=== PATIENT | male | born 1940 | race Caucasian/White ===

== ENCOUNTER 2016-12-01 16:41 | Inpatient (IN) ==
--- NOTE | 2016-12-01 16:46 | Emergency Department Note ---
Disposition Clinical Impression: Small bowel obstruction, Lactic acidosis Disposition: Admitted As Inpatient Condition: Good [facility]: [facility]Primary Care Provider[facility] - Forms: Work/School Release, ED Satisfaction Letter General Adult HPI - General Chief complaint: ED Abdominal Pain Stated complaint: Abdominal Pain - Related Data Allergies Allergy/AdvReac Type Severity Reaction Status Date / Time gabapentin Allergy Rash Verified 12/01/16 16:59 Course Vital Signs Temperature 98.1 F 12/01/16 16:49 Pulse Rate 58 12/01/16 16:49 Respiratory Rate 16 12/01/16 16:49 Blood Pressure 118/66 12/01/16 16:49 O2 Sat by Pulse Oximetry 96 12/01/16 16:49 Temperature 98.1 F 12/01/16 16:49 Pulse Rate 60 12/01/16 18:09 Respiratory Rate 16 12/01/16 18:09 Blood Pressure 106/60 12/01/16 18:09 O2 Sat by Pulse Oximetry 94 12/01/16 18:09 Oxygen Delivery Oxygen Delivery Room Air Medical Decision Making - Lab Data Lab Results 12/01/16 Range/Units 18:04 PT 12.7 H (9.4-12.1) Seconds INR 1.2 Attestation Statement - Attestation Attestation: I examined this patient and my medical decision-making was reviewed with the SDE/PA/Advanced Practice Nurse/Resident Physician. I agree with the documented findings, disposition and treatment plan as described except to the extent set forth below. [id number] time provided Patient transferred from the [facility] due to concerns for small bowel obstruction. Patient states his pain had resolved but is starting to return. He appears in no acute distress on exam. Family at bedside 17:27: CT report from the [facility] reviewed with the resident physician. Call placed to Dr. Cho, surgery on-call to discuss findings
[2016-12-01] MEDS ORDERED: *HR* HYDROmorphone (PF) 1 MG/ML SYRINGE IVP ONE (17:42)
--- NOTE | 2016-12-01 17:42 | Emergency Department Note ---
Disposition Clinical Impression: Small bowel obstruction, Lactic acidosis Disposition: Admitted As Inpatient Condition: Good [facility]errals: [facility] [Primary Care Provider[facility] - Forms: ED Satisfaction Letter, Work/School Release Abdominal Pain HPI - General Chief Complaint: ED Abdominal Pain Stated Complaint: Abdominal Pain Time Seen by Provider: 12/01/16 16:53 Source: patient, EMS Nursing Notes Reviewed: Yes Vital Signs Reviewed: Yes - History of Present Illness HPI Narrative: Yoandy is a 76-year-old gentleman with a history of [id number]-medpqroct diabetes, hypertension, gout who presents to the emergency Department with a chief complaint of abdominal pain and distention. This has been progressive over the last 3 days. 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 he has also had polyps removed from the bowel is well in the past. His last bowel movement was 2 days ago and denies any blood in the stool. He was having some gas yesterday but that seemed to stop. He was seen at the [facility] earlier today with a performed lab work and a CT scan which showed evidence of a high-grade small bowel obstruction. At this time patient's pain is mild and on the left side. He has had no associated nausea or vomiting. No fevers or chills. Pain Scale: 3 - Related Data Allergies Allergy/AdvReac Type Severity Reaction Status Date / Time gabapentin Allergy Rash Verified 12/01/16 16:59 All systems ED: reviewed and negative except as stated. Constitutional: Denies: fever Cardiovascular: Denies: chest pain Respiratory: Denies: cough Gastrointestinal: Reports: abdominal pain (Left-sided). Denies: nausea, vomiting Musculoskeletal: Denies: back pain Neurological: Denies: headache, weakness, numbness Abdominal Pain PMH - Past Medical History Medical history: Reports: diabetes, GERD, hyperlipidemia, hypertension, thyroid disease Male Surgical History: Reports: appendectomy, cholecystectomy Psychiatric history: Reports: anxiety, depression, panic disorder, PTSD, other - Social History Smoking status: Never smoker Alcohol use: Reports: none Drug use: Reports: none Physical Exam General: Appears well, alert and oriented x 3 Cardiovascular: Regular rate and rhythm. S1, S2. No murmurs, rubs or gallops. Respiratory: Breath sounds clear bilaterally. No wheezing, rales or rhonchi. No resp distress Abdomen: Abdomen is slightly distended but soft without any guarding or rigidity. He has some left-sided tenderness. Hyperactive bowel sounds. Mild diffuse discomfort with the majority being on the left side. No palpable organomegaly. No overlying bruising or signs of trauma Eyes: Conjunctiva clear without scleral icterus HENT: No oral mucosal lesions. Moist mucous membranes Neuro: Alert and oriented 3, no motor or sensory deficits Musculoskeletal: No joint tenderness No edema, swelling or signs of DVT Skin: No lesions. No diaphoresis. Normal turgor. Normal color Psych: Appropriate - General Limitations: no limitations General appearance: alert Course Course Narrative: [facility]ocytosis at 12.9. Hemoglobin is 14.7. Platelets are 266. AST and ALTs are within normal limits. Total bilirubin is 1.9. Glucose is 113. Creatinine is 1.25. BUN is 9. GFR is 59. Lactic acid is 3.9 urinalysis shows trace glucose but otherwise unremarkable. CT scan shows a hyperattenuating 3 cm intraluminal lesion in the mid to distal ileum, findings concerning for high-grade small bowel obstruction in the left abdomen. There is also some mesenteric edema, new nodes, fluid and thickened jejunal loops concerning for closed loop obstruction, ischemic, inflammatory or neoplastic process. Clinically patient is comfortable, tender but nonsurgical abdomen. Vital stable. He is afebrile. I discussed with the on-call surgeon and he would like an NG placed, hold antibiotics at this time and provide IV fluids which will likely correct the lactic acidosis. I discussed the NG tube with the patient and he reports he would never have another one of these placed because of previous experience. I told him this is incredibly important and can help prevent surgery but he still does not want. He reports the only way he would have this place if he was completely asleep. Vital Signs Temperature 98.1 F 12/01/16 16:49 Pulse Rate 58 12/01/16 16:49 Respiratory Rate 16 12/01/16 16:49 Blood Pressure 118/66 12/01/16 16:49 O2 Sat by Pulse Oximetry 96 12/01/16 16:49 Temperature 98.1 F 12/01/16 16:49 Pulse Rate 60 12/01/16 17:13 Respiratory Rate 16 12/01/16 17:13 Blood Pressure 123/75 12/01/16 17:13 O2 Sat by Pulse Oximetry 95 12/01/16 17:13 Oxygen Delivery Oxygen Delivery Room Air
[2016-12-01] MEDS ORDERED: 0.9 % Sodium Chloride 1,000 ML IVC ONE (17:49)
[2016-12-01 18:15] LABS: INR 1.2; Prothrombin Time 12.7 Seconds (9.4-12.1)
[2016-12-01] MEDS ORDERED: Menthol 9.1 MG LOZENGE PO STA (18:33)
[2016-12-01] MEDS ORDERED: Ketamine *HR* 500 MG/10 ML MDV IV ONE (19:40)
[2016-12-01] MEDS ORDERED: Lidocaine Viscous Oral Soln 15 ML SOLUTION MM STA (19:44)
--- NOTE | 2016-12-01 20:07 | Emergency Department Note ---
Disposition Clinical Impression: Small bowel obstruction, Lactic acidosis Disposition: Admitted As Inpatient Condition: Good General Adult HPI - General Chief complaint: ED Abdominal Pain Stated complaint: Abdominal Pain Time Seen by Provider: 12/01/16 16:53 Source: patient, EMS Limitations: no limitations - History of Present Illness Pain Scale: 0 - Related Data Allergies Allergy/AdvReac Type Severity Reaction Status Date / Time gabapentin Allergy Rash Verified 12/01/16 16:59 Constitutional: Denies: fever Cardiovascular: Denies: chest pain Respiratory: Denies: cough Gastrointestinal: Reports: abdominal pain (Left-sided). Denies: nausea, vomiting Musculoskeletal: Denies: back pain Neurological: Denies: headache, weakness, numbness Past Medical History - Past Medical History Medical history: Reports: diabetes, GERD, hyperlipidemia, hypertension, thyroid disease Psychiatric history: Reports: anxiety, depression, panic disorder, PTSD, other - Social History Smoking Status: Never smoker Smokeless Tobacco Status: No Alcohol use: Reports: none Drug use: Reports: none Physical Exam - General Limitations: no limitations General appearance: alert Course - Reevaluation(s) Reevaluation #1: Procedure patient from Dr. Jones in signout. Patient is a 76-year-old gentleman that presented with a small bowel disruption from the [facility]. He had elevated lactic acid 4 along with a tympanitic distended abdomen. He had initially reviewed diffuse NG tube placement, but did agree to have an NG tube placed with procedural sedation. We performed the procedural sedation and place the tube without complication. Time: 20:06 Reevaluation #2: KUB in good position on XR. Accepted by Dr. Cheek. NG tube drained 500 mL of bilious fluid so far. Time: 20:49 Vital Signs Temperature 98.1 F 12/01/16 16:49 Pulse Rate 58 12/01/16 16:49 Respiratory Rate 16 12/01/16 16:49 Blood Pressure 118/66 12/01/16 16:49 O2 Sat by Pulse Oximetry 96 12/01/16 16:49 Temperature 99.5 F 12/02/16 00:16 Pulse Rate 85 12/02/16 00:16 Respiratory Rate 20 12/02/16 00:16 Blood Pressure 103/42 12/02/16 00:16 O2 Sat by Pulse Oximetry 93 12/02/16 00:16 Oxygen Delivery Oxygen Delivery [2042] Room Air Oxygen Delivery [2037] Room Air Oxygen Delivery [2032] Room Air Oxygen Delivery [2027] Nasal Cannula Oxygen Delivery [2022] Nasal Cannula Oxygen Delivery [2017] Nasal Cannula Oxygen Delivery [2012] Nasal Cannula Oxygen Delivery [2007] Nasal Cannula Oxygen Delivery [2002] Nasal Cannula Oxygen Delivery [1957] Nasal Cannula Oxygen Delivery [1952] Nasal Cannula Oxygen Delivery Room Air Procedures - Procedural Sedation Indication: other (NG tube placement) Dietary Status: NPO 6 hours prior to procedure H&P (including ROS) documented in medical record: Yes Previous reaction to sedatives/anesthetics: No Dentition: No loose teeth or bridges Airway Assessment: Patient can open mouth completely, TMJ function normal, Micrognathia (under-bite, receding chin) absent, Neck with adequate range of motion Possible difficult airway: No ASA Classification: CLASS II-Mild systemic disease Plan of Care: Pt appropriate candidate for procedure/moderate/conscious sedation , Risks/benefits of procedure/sedation discussed w/ patient/family, If not NPO; Risk of intake outweiged by necessity to perform procedure Preparation: front desk monitor applied, pulse oximeter, capnometry used, supplemental O2 applied, suction/airway equipment at bedside, IV secured Ketamine: IV Ketamine Dose: 100 Patient Tolerated Procedure: well, no complications Medical Decision Making - Lab Data Result diagrams: 12/02/16 03:52 12/02/16 03:52 Lab Results 12/01/16 12/01/16 12/01/16 Range/Units 18:04 20:19 22:56 PT 12.7 H (9.4-12.1) Seconds INR 1.2 POC Glucose 179 H (58-89) Lactic Acid 2.6 H (0.5-2.2) mmol/L Attestation Statement - Attestation Attestation: I, Jag Nesbitt, examined this patient and my medical decision-making was reviewed with the BREAKING MACHINE OPERATOR/PA/Advanced Practice Nurse/Resident Physician. I agree with the documented findings, disposition and treatment plan as described except to the extent set forth below. 76-year-old male received in sign out at 7 PM upon the start of my shift pending hospital. Patient is being admitted for a small bowel instruction. We discussed possible nasogastric tube placement with him he agreed under conditions of procedural sedation. The risks and benefits were discussed thoroughly with the patient and he agreed to a procedural sedation for NG tube placement. Patient was given ketamine, NG tube was placed without difficulty, chest x-ray confirmed placement of the NG tube as it cut to the maynor and the diaphragm. Patient had return of gastric contents and felt improved during observation in the emergency department. He was admitted to the hospital for further care and evaluation of a small bowel obstruction to the hospitalist with surgical consult to Dr. Cho.
[2016-12-01] MEDS ORDERED: *HR* LORazepam 2 MG/ML VIAL IVP ONE ×2 (21:11→21:31)
[2016-12-01] MEDS ORDERED: *HR* OxyCODONE Immed Rel 5 MG TABLET PO PRN (23:40)
[2016-12-01] MEDS ORDERED: Acetaminophen 325 MG TABLET PO PRN (23:40)
[2016-12-01] MEDS ORDERED: Naloxone 0.4 MG/ML INJ IVP PRN (23:40)
--- NOTE | 2016-12-01 23:44 | Internal Med History&Physical ---
Date of Encounter: 12/01/16 Time of Encounter: 23:20 Assessment and Plan (1) Small bowel obstruction Current visit: Yes Status: Acute Likely due to adhesions from multiple previous abdominal surgeries including partial small bowel resection. CT abdomen/pelvis done at the [facility] emergency room shows changes suggestive of high-grade small bowel obstruction. Surgery has been consulted by ER physician, recommended medical management, full consult to follow. Continue nasogastric tube to intermittent low wall suction. Keep nothing by mouth for now with IV hydration. Pain control with when necessary IV morphine. Monitor and replace electrolytes. Patient may require surgery for small bowel obstruction. (2) Lactic acidosis Current visit: Yes Status: Acute Likely due to ischemic small bowel. Lactic acid noted to be 3.9 at the [facility], currently 2.6. Continue IV hydration and monitor lactic acid. (3) Diabetes mellitus Current visit: Yes Status: Chronic Accu-Chek blood glucose monitoring with sliding scale insulin as needed. Check hemoglobin A1c. Nothing by mouth for now. Qualifiers: Diabetes mellitus type: type 2 Diabetes mellitus complication status: with unspecified complications Diabetes mellitus oil heaterman insulin use: without alf use Qualified Code(s): E11.8 - Type 2 diabetes mellitus with unspecified complications (4) Hypothyroidism Current visit: Yes Status: Chronic Resume levothyroxine. Will give IV Synthroid for now due to patient being nothing by mouth. Qualifiers: Hypothyroidism type: unspecified Qualified Code(s): E03.9 - Hypothyroidism , unspecified (5) PTSD (post-traumatic stress disorder) Current visit: Yes Status: Chronic Internal Medicine - H&P: HPI Chief complaint: Abdominal pain, distension Admitted From: Emergency Dept Plans for Post Hospital Care: [facility] History of present illness: Mr. 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 Patient was initially evaluated at the [facility] emergency room and sent to our hospital for higher level of care. Patient reports at least a four-week history of nonspecific lower abdominal pain for which he was evaluated at different emergency rooms at least twice and underwent basic labs, CT abdomen, PET/CT with no specific diagnosis. His abdominal pain has been getting worse for the last 2-3 days, associated with abdominal distention and nausea. Pain is worse in left lower abdomen, moderate to severe dull aching pain, nonradiating, no aggravating or relieving factors. He reports no vomiting and his last bowel movement has been yesterday morning after which he took laxatives with no flatness or bowel movement. He reports subjective chills but no chest pain, cough, shortness of breath. He lives alone and reports recent unsteady gait, he also sustained a fall about 5 weeks ago and has recently been approved for home health services, not begun yet. Past Med Surg Social Fam HX - Past Medical History Medical history: diabetes, GERD, hyperlipidemia, hypertension, thyroid disease Psychiatric history: anxiety, depression, panic disorder, PTSD - Past Surgical History Surgical History: appendectomy, cholecystectomy, other (Small bowel resection and excision of possible mass/tumor) - Social History Smoking Status: Never smoker Smokeless Tobacco Status: No Alcohol use: none Drug use: none Occupational status: retired Current living situation: Home - Independent Activity Level: Independent ambulation Recent Out of Country Travel Within the Last 8 Weeks: No - Family History Mother Hx Family Cardiac Disorders: Yes Father Hx Family Neurologic Disorders: Yes Internal Medicine - H&P: Meds Cyanocobalamin (B-12) [Vitamin B12] 1,000 mcg PO BID 12/01/16 [History] LORazepam [Ativan] 0.5 mg PO TID PRN 12/01/16 [History] Levothyroxine [Levothyroxine Sodium] 137 mcg PO DAILY 12/01/16 [History] Lidocaine Patch [Lidoderm 5% patch] 1 each TP DAILY 12/01/16 [History] Polyethylene Glycol 17 g PO DAILY PRN 12/01/16 [History] Simvastatin [Zocor] 20 mg PO BID 12/01/16 [History] metFORMIN [Glucophage] 1,000 mg PO BID 12/01/16 [History] Allergies gabapentin Allergy (Verified 12/01/16 16:59) Rash All Systems PM: A 10-system review of systems was performed and is negative for pertinent findings except as documented above in the HPI. - Constitutional Constitutional: chills, falls - EENT Eyes: no change in vision, no discharge, no pain, no photophobia Ears: no ear discharge, no ear pain, no tinnitus Nose, mouth and throat: no dysphagia, no nasal discharge, no neck pain, no sore throat - Cardiovascular Cardiovascular ROS IM: no chest pain, no diaphoresis, no dyspnea, no lightheadedness, no palpitations, no syncope - Respiratory Respiratory: no cough, no dyspnea, no wheezing, no excessive phlegm production - Gastrointestinal Gastrointestinal: abdominal pain, bloating, change in bowel habits, nausea - Musculoskeletal Musculoskeletal ROS IM: no numbness, no tingling - Integumentary Integumentary IM: no rash, no unusual bruising - Neurological Neurological ROS: no confusion, no convulsions, no focal weakness, no numbness, no tingling, no tremor(s) - Hematologic/Lymphatic Hematologic/Lymphatic: no easy bruising - Constitutional Vitals: Temp Pulse Resp BP Pulse Ox 100.2 F H 102 20 160/70 94 12/01/16 22:05 12/01/16 22:05 12/01/16 22:05 12/01/16 22:05 12/01/16 22:05 General appearance: Present: A&O X 3, answers questions appropriately - ENT Additional comments: Bilateral hearing loss. NG tube connected to intermittent low wall suction, continues to have high dark greenish black output - Respiratory Respiratory exam: Present: CTAB. Absent: accessory muscle use, rales, rhonchi, wheezes - Cardiovascular Cardiovascular exam: Present: RRR, +S1, +S2. Absent: diastolic murmur, gallop, rubs, systolic murmur - GI/Abdominal GI/Abdominal exam: Present: distended, hyperactive bowel sounds, soft ( Tenderness in lower abdomen and left lower quadrant. No guarding or rigidity), no peritoneal signs. Absent: tenderness - Extremities Exam Extremities exam: Present: full ROM, warm, radial pulses palpable and symetrical. Absent: calf tenderness, cyanotic, pedal edema - Neurological Exam Neurological exam: Present: CN II-XII intact, oriented X3, no focal deficits. Absent: pronater drift, facial droop, speech deficit - Skin Skin exam: Present: dry, intact Internal Med - H&P Results - EKG Data -: EKG Interpreted by Myself EKG shows normal: sinus rhythm Rate: normal
[2016-12-02] MEDS ORDERED: Chloraseptic Spray 177 ML BOTTLE MM PRN (00:08)
[2016-12-02] MEDS: 0.9 % Sodium Chloride 1,000 ML IVC SCH ×2 (00:26→14:36)
[2016-12-02] MEDS: *HR* Morphine 2 MG/ML SYRINGE IVP PRN ×2 (00:27→05:25)
[2016-12-02] MEDS ORDERED: *HR* Dextrose 50 % in Water (Syg) 50 ML SYRINGE IVP PRN (03:31)
[2016-12-02] MEDS ORDERED: D5% in Water 1,000 ML IVC PRN (03:31)
[2016-12-02] MEDS ORDERED: Dextrose Gel 15 GM PO PRN ×2 (03:31)
[2016-12-02 04:07] LABS: Hemoglobin A1C 6.9 %
[2016-12-02 04:15] LABS: BUN/Creatinine Ratio 16 (6-26); Blood Urea Nitrogen 20 mg/dL (8-26); Calcium 8.5 mg/dL (8.6-10.8); Carbon Dioxide 24 mEq/L (19-29); Chloride 105 mEq/L (98-109); Glucose 220 mg/dL (70-99); Magnesium 1.9 mg/dL (1.6-2.6); Osmolality,Calculated 299 (280-300); Phosphorous 3.5 mg/dL (2.3-4.7); Sodium 140 mEq/L (136-145); eGFR For African Americans > 60 (> 60); eGFR For Non-African Americans 55 (> 60)
[2016-12-02 04:20] LABS: Potassium 3.9 mEq/L (3.5-4.5)
[2016-12-02 05:03] LABS: Basophils % 0.1 %; Hematocrit 35.9 % (37.5-50.1); Hemoglobin 12.6 g/dL (12.9-16.9); Lymphocytes # 0.5 K/mcL (0.6-4.6); Lymphocytes % 3.4 %; Mean Corpuscular HGB Conc 35.1 g/dL (31.6-35.5); Mean Corpuscular Hemoglobin 30.4 pg (28.0-33.3); Mean Corpuscular Volume 86.7 fL (83.0-100.0); Mean Platelet Volume 11.6 fL (9.4-12.4); Monocytes # 1.2 K/mcL (0.0-1.3); Neutrophils # 12.9 K/mcL (1.6-8.9); Platelet Count 178 K/mcL (140-400); Red Blood Count 4.14 M/mcL (4.19-5.50); Segmented Neutrophils % 87.5 %
[2016-12-02] MEDS: *HR* Heparin 5,000 UNIT/ML VIAL SQ SCH ×2 (05:24→17:47)
[2016-12-02] MEDS: Pantoprazole 40 MG VIAL IVP SCH (05:24)
[2016-12-02] MEDS: Levothyroxine Sodium 100 MCG VIAL IVP SCH (05:24)
[2016-12-02] MEDS: Insulin LISPRO 300 UNITS/3 ML VIAL SQ SCH ×3 (05:25→18:56)
[2016-12-02] MEDS ORDERED: *HR* HYDROmorphone (PF) 1 MG/ML SYRINGE IVP ONE (06:50)
--- NOTE | 2016-12-02 10:09 | General Surgery Consult Note ---
<Joann Dent - Last Filed: 12/02/16 16:59> Date of Encounter: 12/02/16 Time of Encounter: 09:30 Assessment and Plan (1) Small bowel obstruction Current Visit: Yes Status: Acute High grade small bowel obstruction. 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 Patient reports progressively worsening abdominal pain described as constant aching sensation with intermittent episodes of severe cramping pain at 7-10 out of 10 located in his left upper quadrant and radiating down his left lower quadrant to his pelvis. Associated symptoms include bloating and distention, nausea, and blood in his stool over the past month. Patient reports last bowel movement was 3 days ago he has not had flatus, or had any appetite for 3 days. Patient reports last meal was 3 days ago. [facility], CT abdomen dated 12/01/16: CT of the abdomen and pelvis without contrast was compared to CT scan dated 11/06/16. Impression: 1. Findings concerning for high-grade small bowel obstruction epicenter of which is in the left abdomen, and probably centering on the jejunal loops focal infiltrative neoplasm, enteritis closed-loop obstruction are considerations. Left mid to upper mesenteric edema, new nodes, fluid, and distortion of thickened probable jejunal loops; concerning for possible closed loop obstruction ischemic, inflammatory or neoplastic process would be difficult to exclude. This cluster of dilated small bowel loops, with narrow central medial base, best seen on coronal image 28, series 203 measuring approximately 6-7 cm. 2. Small bowel loops distal to this left upper quadrant abnormality air dilated , with air fluid levels, extending to the proximal ileal, distal jejunal small bowel intraluminal hyper attenuating focus, best seen on axial image 46, series 201. Findings could be due to ingested hyper attenuating artifact, however there appeared to be a transition point, bowel neoplasm, intraluminal lesion with transitional point, should be excluded 3. The left colon appears nondilated with diverticulosis. Colitis diverticulitis is not definitely seen 4. The right abdominal colonic, small bowel anastomosis shows mild wall prominence, adjacent nodes, stranding of fat could represent localized recurrence lucency, however inflammatory or infectious process would be difficult to exclude. 5. Previously mentioned hepatic hypodensity is not suggested current study, contrast-enhanced CT, MRI or ultrasound to be useful to assess for hepatic metastases. 6. New, slightly heterogenous linear and somewhat nodular opacities at the right lung base could represent atelectasis. Pulmonary neoplasm not entirely excluded. Consider follow-up chest CT to ensure resolution particularly if concern for pulmonary malignancy. Laboratory results from [facility] demonstrated leukocytosis 12.9, eosinophils 10.8, absolute neutrophil count 9.5, total bilirubin 1.9, creatinine of 1.25, Lactic acid 3.9, labs otherwise unremarkable. Plan: Small bowel obstruction -Continue NG tube to low intermittent wall suction to decompress air/fluid in the upper GI tract. Monitor output. -Close electrolyte monitoring especially - Potassium as pt has had large volume output NG tube. -NPO except for Ice chips: 1 cup every 6 hours. -Serial abdominal exams -Close monitoring of I/O's over the next 24 hours -Continue IV fluids -Continue pain control -Continue GI prophylaxis/PPI therapy -Continued daily monitoring for flatus and bowel movements. -Conservative therapy for 48 to 72 hours for small bowel obstruction. If no resolution surgery may be indicated. Will obtain further records from 3 medical facilities patient had abdominal surgeries with "masses" removed. Nurse Thacker has requested records by calling today. Surgical reports, pathology, imaging requested. - [facility] [place]: reported surgery 11 months ago - [facility] History of Present Illness Consult date: 12/02/16 Reason for consult: abdominal pain Requesting physician: Leeroy Jones History of present illness: Mr. 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 Patient reports progressively worsening abdominal pain described as constant aching sensation with intermittent episodes of severe cramping pain at 7-10 out of 10 located in his left upper quadrant and radiating down his left lower quadrant to his pelvis. Associated symptoms include bloating and distention, nausea, and blood in his stool over the past month. Patient reports last bowel movement was 3 days ago he has not had flatus, or had any appetite for 3 days. Patient reports last meal was 3 days ago. Patient reports that he tried to take half a tablet of Vicodin to alleviate the pain however, this provided minimal relief when taken the first day no relief the second or third day of abdominal pain. Pain continued to increase despite treatment at home prompting the patient to be seen today. [facility], CT abdomen dated 12/01/16: CT of the abdomen and pelvis without contrast was compared to CT scan dated 11/06/16. Impression: 1. Findings concerning for high-grade small bowel obstruction epicenter of which is in the left abdomen, and probably centering on the jejunal loops focal infiltrative neoplasm, enteritis closed-loop obstruction are considerations. Left mid to upper mesenteric edema, new nodes, fluid, and distortion of thickened probable jejunal loops; concerning for possible closed loop obstruction ischemic, inflammatory or neoplastic process would be difficult to exclude. This cluster of dilated small bowel loops, with narrow central medial base, best seen on coronal image 28, series 203 measuring approximately 6-7 cm. 2. Small bowel loops distal to this left upper quadrant abnormality air dilated , with air fluid levels, extending to the proximal ileal, distal jejunal small bowel intraluminal hyper attenuating focus, best seen on axial image 46, series 201. Findings could be due to ingested hyper attenuating artifact, however there appeared to be a transition point, bowel neoplasm, intraluminal lesion with transitional point, should be excluded 3. The left colon appears nondilated with diverticulosis. Colitis diverticulitis is not definitely seen 4. The right abdominal colonic, small bowel anastomosis shows mild wall prominence, adjacent nodes, stranding of fat could represent localized recurrence lucency, however inflammatory or infectious process would be difficult to exclude. 5. Previously mentioned hepatic hypodensity is not suggested current study, contrast-enhanced CT, MRI or ultrasound to be useful to assess for hepatic metastases. 6. New, slightly heterogenous linear and somewhat nodular opacities at the right lung base could represent atelectasis. Pulmonary neoplasm not entirely excluded. Consider follow-up chest CT to ensure resolution particularly if concern for pulmonary malignancy. Laboratory results from [facility] demonstrated leukocytosis 12.9, eosinophils 10.8, absolute neutrophil count 9.5, total bilirubin 1.9, creatinine of 1.25, Lactic acid 3.9, labs otherwise unremarkable. Relevant history: Patient reports 4-5 weeks of intermittent colicky abdominal pain for which he was evaluated at the [facility] on 11/06/16 with small bowel obstruction. CT scan suggested possible small bowel obstruction due to mass seen on CT and liver spot. He reports that his obstruction resolved and he was sent home with outpatient PET scan. He was then seen at [facility] 11/28/16 to evaluate a spot on his liver for which he had a PET scan demonstrating no acute pathology or uptake. Whole body PET CT fusion study dated 11/28/16 was compared to previous abdominal CT of 12/31/15. Impression: 1. Previously noted ileaoileal intussusception is no longer evident and may have been surgically repaired. 2. No definite evidence of a neoplastic process involving the abdomen or pelvis. There is a rather intense uptake throughout the small bowel and colon which limits evaluation somewhat. 3. There is a nearly 2 cm somewhat poorly defined density in the right lower lobe. This demonstrates very mild tracer uptake and most likely represent some atelectasis or minimal focal pneumonia. Clinical and radiographic follow-up is suggested. 4. There is moderate tracer accumulation within bilateral hilar lymph nodes most pronounced on the right. I suspect these are postinflammatory but should be reassessed with follow-up chest CT in 6 months to assure stability. A contrast-enhanced CT would be beneficial to better evaluate hilar adenopathy. 5. Incidental findings include moderate prostatomegaly as well as bilateral fat -containing inguinal hernias. On 11/29/16 patient was seen at [facility] for persistent abdominal pain. Laboratory results demonstrated: Amylase 71 Lipase 127 AST 17 AST 11 Albumin 3.6 Alkaline phosphatase 84 Bilirubin total 0.7 Bilirubin direct 0.2 Total protein 7.1 Lactic acid 1.6 BMP: Sodium 142, potassium 3.8, chloride 107, bicarbonate 26, BUN 12 creatinine 1.10 glucose 131, calcium 8.5 BUN/creatinine ratio 10.9, anion gap 12.8 CBC with differential: Unremarkable. Patient's pain was relieved with 20 of Bentyl. No imaging studies were obtained. Patient was counseled to follow-up with Dr. Díaz. Patient was discharged in stable condition. 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 Patient reports that they went in through the same incision twice, reports that no time did he have a colostomy ; surgery reported to be performed at [facility] by Dr Acuna. Past Med Surg Social Fam HX - Past Medical History Medical history: diabetes, GERD, hyperlipidemia, hypertension, thyroid disease Psychiatric history: anxiety, depression, panic disorder, PTSD, other - Past Surgical History Surgical History: appendectomy, cholecystectomy, other (Small bowel resection and excision of possible mass/tumor) - Social History Smoking Status: Never smoker Smokeless Tobacco Status: No Alcohol use: none Drug use: none - Family History Mother Hx Family Cardiac Disorders: Yes Father Hx Family Neurologic Disorders: Yes Medications and Allergies Cyanocobalamin (B-12) [Vitamin B12] 1,000 mcg PO BID 12/01/16 [History] LORazepam [Ativan] 0.5 mg PO HS PRN 12/01/16 [History] Lidocaine Patch [Lidoderm 5% patch] 2 each TP DAILY 12/01/16 [History] Polyethylene Glycol 3350 [Smoothlax] 17 gm PO BID PRN 12/01/16 [History] RX: Levothyroxine [Levothyroxine Sodium] 137 mcg PO QAM 12/01/16 [History] Simvastatin [Zocor] 20 mg PO HS 12/01/16 [History] metFORMIN [Glucophage] 1,000 mg PO QAM 12/01/16 [History] Cyanocobalamin (B-12) [Vitamin B12] 1,000 mcg IM AD 12/02/16 [History] Diclofenac Sodium [Voltaren] 1 appl TP BID PRN 12/02/16 [History] Melatonin [Melatin] 3 mg PO HS 12/02/16 [History] Pantoprazole Sodium [Protonix] 20 mg PO BID 12/02/16 [History] Pregabalin [Lyrica] 150 mg PO BID 12/02/16 [History] Pregabalin [Lyrica] 200 mg PO HS 12/02/16 [History] RX: Gentamicin OPTH Soln 2 drop BOTH EYES QID 12/02/16 [History] Saxagliptin HCl [Onglyza] 5 mg PO DAILY 12/02/16 [History] Sennosides/Docusate Sodium [Senna Plus] 1 each PO BID 12/02/16 [History] Tobramycin/Dexamethasone [Tobramycin-Dexameth Ophth Susp] 1 drop BOTH EYES QID 12/02/16 [History] metFORMIN [Glucophage] 1,500 mg PO HS 12/02/16 [History] Allergies gabapentin Allergy (Verified 12/01/16 16:59) Rash omeprazole [From Prilosec] Adverse Reaction (Verified 12/02/16 14:05) [facility] list Review of Systems All systems PM: A 10-system review of systems was performed and is negative for pertinent findings except as documented above in the HPI. - Constitutional anorexia, no fever(s) - EENT Nose, mouth and throat: no headache(s), no mouth lesions, no neck mass - Cardiovascular dyspnea on exertion, no chest pain at rest, no diaphoresis, no palpitations - Respiratory pain on inspiration, no cough - Gastrointestinal abdominal pain, change in bowel habits, constipation, dyspepsia, heartburn, nausea, no coffee ground emesis, no hematemesis, no hematochezia, no melena, no vomiting - Genitourinary no dysuria, no flank pain - Musculoskeletal arthralgias, back pain, joint swelling (Gout flare), neck pain, tingling - Integumentary no new lesions, no pruritus, no rash, no sores, no swelling, no jaundice - Neurological numbness, paresthesias, radicular pain, no syncope, no vertigo, no weakness - Psychiatric abnormal sleep pattern, anxiety, depression - Endocrine no excessive sweating, no fatigue, no flushing, no palpitations, no polyuria - Hematologic/Lymphatic no easy bleeding, no easy bruising, no lymphadenopathy - Allergic/Immunologic GI upset with certain foods General Surgery Exam Initial Vital Signs Temp Pulse Resp BP Pulse Ox 98.1 F 58 16 118/66 96 12/01/16 16:49 12/01/16 16:49 12/01/16 16:49 12/01/16 16:49 12/01/16 16:49 - General physical appearance well developed, well nourished, moderate distress, moderate pain, obese. negative: jaundice - Eyes PERRL, normal ocular movement - ENT atraumatic, normocephalic - Neck trachea midline, no venous distension - Respiratory normal expansion, normal respiratory effort, clear to auscultation - Cardiovascular Cardiovascular exam: Present: RRR, no murmurs/rubs/gallops. Absent: JVD - Abdomen Abdomen general surgery: Present: bowel sounds present, soft, tender Abdominal Tenderness: Present: LUQ, LLQ - Integumentary Integumentary general surgery: Present: warm and dry, no abnormal pigmentation. Absent: rash - Neurologic Present: CN 2-12 grossly intact, normal coordination, normal sensation - Musculoskeletal Present: normal posture - Psychiatric Psychiatric general surgery: Present: A&Ox3, appropriate, speech is normal, memory intact Exam Initial Vital Signs Temp Pulse Resp BP Pulse Ox 98.1 F 58 16 118/66 96 12/01/16 16:49 12/01/16 16:49 12/01/16 16:49 12/01/16 16:49 12/01/16 16:49 Results - Labs 12/02/16 03:52 12/02/16 03:52 Abnormal lab results WBC 14.7 K/mcL (4.3-11.1) H 12/02/16 03:52 RBC 4.14 M/mcL (4.19-5.50) L 12/02/16 03:52 Hgb 12.6 g/dL (12.9-16.9) L 12/02/16 03:52 Hct 35.9 % (37.5-50.1) L 12/02/16 03:52 Neutrophils # 12.9 K/mcL (1.6-8.9) H 12/02/16 03:52 Lymphocytes # 0.5 K/mcL (0.6-4.6) L 12/02/16 03:52 PT 12.7 Seconds (9.4-12.1) H 12/01/16 18:04 Creatinine 1.26 mg/dL (0.72-1.25) H 12/02/16 03:52 Est GFR (Non-Af Amer) 55 (> 60) L 12/02/16 03:52 Glucose 220 mg/dL (70-99) H 12/02/16 03:52 POC Glucose 179 (58-89) H 12/01/16 22:56 Hemoglobin A1c 6.9 % (-5.6) H 12/02/16 03:52 Calcium 8.5 mg/dL (8.6-10.8) L 12/02/16 03:52 Diabetes panel 12/02/16 12/02/16 Range/Units 03:52 03:52 Sodium 140 (136-145) mEq/L Potassium 3.9 (3.5-4.5) mEq/L Chloride 105 (98-109) mEq/L Carbon Dioxide 24 (19-29) mEq/L BUN 20 (8-26) mg/dL Creatinine 1.26 H (0.72-1.25) mg/dL Glucose 220 H (70-99) mg/dL Hemoglobin A1c 6.9 H ( - 5.6) % Calcium 8.5 L (8.6-10.8) mg/dL Calcium panel 12/02/16 Range/Units 03:52 Calcium 8.5 L (8.6-10.8) mg/dL Phosphorus 3.5 (2.3-4.7) mg/dL Pituitary panel 12/02/16 Range/Units 03:52 Sodium 140 (136-145) mEq/L Potassium 3.9 (3.5-4.5) mEq/L Chloride 105 (98-109) mEq/L Carbon Dioxide 24 (19-29) mEq/L BUN 20 (8-26) mg/dL Creatinine 1.26 H (0.72-1.25) mg/dL Glucose 220 H (70-99) mg/dL Calcium 8.5 L (8.6-10.8) mg/dL Adrenal panel 12/02/16 Range/Units 03:52 Sodium 140 (136-145) mEq/L Potassium 3.9 (3.5-4.5) mEq/L Chloride 105 (98-109) mEq/L Carbon Dioxide 24 (19-29) mEq/L BUN 20 (8-26) mg/dL Creatinine 1.26 H (0.72-1.25) mg/dL Glucose 220 H (70-99) mg/dL Calcium 8.5 L (8.6-10.8) mg/dL All other labs normal. Consult Discharge Plan - Plan [facility]errals: [facility]Primary Care Provider[facility] - <Pj Cho - Last Filed: 12/03/16 05:47> Date of Encounter: 12/03/16 Review of Systems All systems PM: A 10-system review of systems was performed and is negative for pertinent findings except as documented above in the HPI. General Surgery Exam Initial Vital Signs Temp Pulse Resp BP Pulse Ox 98.1 F 58 16 118/66 96 12/01/16 16:49 12/01/16 16:49 12/01/16 16:49 12/01/16 16:49 12/01/16 16:49 Exam Initial Vital Signs Temp Pulse Resp BP Pulse Ox 98.1 F 58 16 118/66 96 12/01/16 16:49 12/01/16 16:49 12/01/16 16:49 12/01/16 16:49 12/01/16 16:49 Results - Labs 12/03/16 04:40 12/03/16 04:40 Abnormal lab results Hgb 12.8 g/dL (12.9-16.9) L 12/03/16 04:40 Hct 36.8 % (37.5-50.1) L 12/03/16 04:40 PT 12.7 Seconds (9.4-12.1) H 12/01/16 18:04 Glucose 127 mg/dL (70-99) H 12/03/16 04:40 POC Glucose 196 (58-89) H 12/02/16 11:08 Hemoglobin A1c 6.9 % (-5.6) H 12/02/16 03:52 Diabetes panel 12/03/16 Range/Units 04:40 Sodium 142 (136-145) mEq/L Potassium 3.6 (3.5-4.5) mEq/L Chloride 109 (98-109) mEq/L Carbon Dioxide 23 (19-29) mEq/L BUN 24 (8-26) mg/dL Creatinine 1.06 (0.72-1.25) mg/dL Glucose 127 H (70-99) mg/dL Calcium 8.8 (8.6-10.8) mg/dL Calcium panel 12/03/16 Range/Units 04:40 Calcium 8.8 (8.6-10.8) mg/dL Pituitary panel 12/03/16 Range/Units 04:40 Sodium 142 (136-145) mEq/L Potassium 3.6 (3.5-4.5) mEq/L Chloride 109 (98-109) mEq/L Carbon Dioxide 23 (19-29) mEq/L BUN 24 (8-26) mg/dL Creatinine 1.06 (0.72-1.25) mg/dL Glucose 127 H (70-99) mg/dL Calcium 8.8 (8.6-10.8) mg/dL Adrenal panel 12/03/16 Range/Units 04:40 Sodium 142 (136-145) mEq/L Potassium 3.6 (3.5-4.5) mEq/L Chloride 109 (98-109) mEq/L Carbon Dioxide 23 (19-29) mEq/L BUN 24 (8-26) mg/dL Creatinine 1.06 (0.72-1.25) mg/dL Glucose 127 H (70-99) mg/dL Calcium 8.8 (8.6-10.8) mg/dL All other labs normal. - Attending Attestation I examined this patient and my medical decision-making was reviewed with the BI[employer] CUTTER/PA/Advanced Practice Nurse/Resident Physician. I agree with the documented findings, disposition and treatment plan as described except to the extent set forth below. Personal reviewed the assessment and evaluation with the dietetic intern present. Personal review the CT scan images and report as well. Patient has evidence of a partial small bowel obstruction or complete bowel instruction. He notices a significant difference with the NG tube decompression. On examination he is mildly tympanitic with some right left side abdominal pain with moderate palpation. No masses palpated. Agree with NG tube decompression and will request records from outside facility regarding the surgical procedures and these "masses" or polyps found requiring resection. My concern is that he may have some type of polyposis syndrome which may be playing a role in the knee for his previous surgical procedures. The majority of his symptoms now however are due to adhesions and we will follow with you.
--- NOTE | 2016-12-02 10:35 | Internal Med Progress Note ---
Date of Encounter: 12/02/16 Time of Encounter: 10:35 - Assessment and plan (1) Small bowel obstruction Current Visit: Yes Status: Acute Assessment and plan: High risk patient with self stated hx of multiple bowel surgeries, recurrent SBO , one with perforation Large effluent from NG tube Surgery following Continue bowel rest, IVF, pain meds, strict intake/output monitoring, monitor chem Follow surgery recommendations (2) Lactic acidosis Current Visit: Yes Status: Resolved Assessment and plan: Resolved (3) Diabetes mellitus Current Visit: Yes Status: Chronic Assessment and plan: A1C 6.9 FS q6 for now with sliding scale Qualifiers: Diabetes mellitus type: type 2 Diabetes mellitus complication status: with unspecified complications Diabetes mellitus half-way insulin use: without half-way use Qualified Code(s): E11.8 - Type 2 diabetes mellitus with unspecified complications (4) Hypothyroidism Current Visit: Yes Status: Chronic Assessment and plan: Continue synthroid Qualifiers: Hypothyroidism type: unspecified Qualified Code(s): E03.9 - Hypothyroidism , unspecified (5) PTSD (post-traumatic stress disorder) Current Visit: Yes Status: Chronic Assessment and plan: Continue home meds - Subjective Interval history: 76 M being managed for SBO he has a history of hypertension, diabetes, hypothyroidism, 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, multiple bowel surgeries, hx of SBO with perforation in the past Work up on admission also revealed lactic acidosis, leukocytosis Seen and evaluated at bedside No new complains Chem stable today - Constitutional Vitals: Temp Pulse Resp BP Pulse Ox 97.7 F 62 18 124/76 94 12/02/16 10:25 12/02/16 10:25 12/02/16 10:25 12/02/16 10:25 12/02/16 10:25 General appearance: Present: A&O X 3, pleasant, no acute distress, answers questions appropriately - Head Head exam: Present: atraumatic, normocephalic - Eye Eye exam: Present: PERRL, conjuntiva pink, sclera anicteric Pupils: Present: PERRL - ENT Additional comments: NG tube with bilious effluent - Neck Neck exam general surgery: Present: supple, trachea midline. Absent: lymphadenopathy - Respiratory Respiratory exam: Present: CTAB. Absent: accessory muscle use, rales, rhonchi, wheezes - Cardiovascular Cardiovascular exam: Present: RRR, +S1, +S2. Absent: diastolic murmur, gallop, rubs, systolic murmur - GI/Abdominal GI/Abdominal exam: Present: hyperactive bowel sounds, soft, tenderness (mild, generalized, no guarding, no rebound) - Extremities Exam Extremities exam: Present: warm, radial pulses palpable and symetrical. Absent : calf tenderness, cyanotic, pedal edema - Neurological Exam Neurological exam: Present: alert, CN II-XII intact, oriented X3, no focal deficits. Absent: pronater drift, facial droop, speech deficit - Skin Skin exam: Present: dry, intact Internal Medicine: Result - Labs CBC & Chem 7: 12/02/16 03:52 12/02/16 03:52 Labs: Short CBC 12/02/16 Range/Units 03:52 WBC 14.7 H (4.3-11.1) K/mcL Hgb 12.6 L (12.9-16.9) g/dL Hct 35.9 L (37.5-50.1) % Plt Count 178 (140-400) K/mcL Neutrophils # 12.9 H (1.6-8.9) K/mcL BMP 12/02/16 03:52 Sodium 140 Potassium 3.9 Chloride 105 Carbon Dioxide 24 BUN 20 Creatinine 1.26 H Glucose 220 H Calcium 8.5 L - ABG Interpretation ABG results: PT/INR, D-dimer PT 12.7 Seconds (9.4-12.1) H 12/01/16 18:04 - Impressions Impressions KUB X-Ray 12/02/16 23:42 IMPRESSION: Stable appearance of the abdomen with no acute process. D/ / Wesley Lemos MD / Wesley Lemos MD Interpreting Provider: Wesley Lemos MD Consult Discharge Plan - Plan [facility]errals: [facility] [Primary Care Provider[facility] -
[2016-12-02] MEDS: *HR* HYDROmorphone (PF) 1 MG/ML SYRINGE IVP PRN ×2 (11:12→19:22)
[2016-12-02] MEDS ORDERED: *HR* LORazepam 2 MG/ML VIAL IVP ONE (19:44)
[2016-12-03] MEDS: Insulin LISPRO 300 UNITS/3 ML VIAL SQ SCH ×4 (00:18→18:03)
[2016-12-03] MEDS: *HR* HYDROmorphone (PF) 1 MG/ML SYRINGE IVP PRN ×4 (01:19→21:40)
[2016-12-03] MEDS: 0.9 % Sodium Chloride 1,000 ML IVC SCH ×2 (03:08→16:17)
[2016-12-03 05:13] LABS: Basophils % 0.3 %; Eosinophils # 0.1 K/mcL (0.0-0.6); Eosinophils % 0.7 %; Hematocrit 36.8 % (37.5-50.1); Hemoglobin 12.8 g/dL (12.9-16.9); Immature Granulocytes % 0.4 % (0-4); Lymphocytes # 1.2 K/mcL (0.6-4.6); Lymphocytes % 16.3 %; Mean Corpuscular HGB Conc 34.8 g/dL (31.6-35.5); Mean Corpuscular Hemoglobin 30.1 pg (28.0-33.3); Mean Corpuscular Volume 86.6 fL (83.0-100.0); Mean Platelet Volume 11.3 fL (9.4-12.4); Monocytes # 0.8 K/mcL (0.0-1.3); Monocytes % 11.2 %; Platelet Count 223 K/mcL (140-400); Red Blood Count 4.25 M/mcL (4.19-5.50); Red Cell Distribution Width 13.9 % (11.5-14.5); Segmented Neutrophils % 71.1 %
[2016-12-03 05:25] LABS: Neutrophils # 5.3 K/mcL (1.6-8.9)
[2016-12-03 05:32] LABS: BUN/Creatinine Ratio 23 (6-26); Blood Urea Nitrogen 24 mg/dL (8-26); Calcium 8.8 mg/dL (8.6-10.8); Carbon Dioxide 23 mEq/L (19-29); Chloride 109 mEq/L (98-109); Glucose 127 mg/dL (70-99); Osmolality,Calculated 300 (280-300); Potassium 3.6 mEq/L (3.5-4.5); Sodium 142 mEq/L (136-145); eGFR For African Americans > 60 (> 60); eGFR For Non-African Americans > 60 (> 60)
[2016-12-03] MEDS: Levothyroxine Sodium 100 MCG VIAL IVP SCH (06:00)
[2016-12-03] MEDS: Pantoprazole 40 MG VIAL IVP SCH (06:01)
[2016-12-03] MEDS: *HR* Heparin 5,000 UNIT/ML VIAL SQ SCH ×2 (06:01→16:16)
--- NOTE | 2016-12-03 09:16 | General Surgery Progress Note ---
Date of Encounter: 12/03/16 Time of Encounter: 09:11 - Assessment and Plan (1) Small bowel obstruction Current Visit: Yes Status: Acute High grade small bowel obstruction. [facility] scan 12/01/16 shows a hyperattenuating 3 cm intraluminal lesion in the mid to distal ileum, findings concerning for high-grade small bowel obstruction in the left abdomen. NG tube remains in place with high output: 12/02 2125cc, 12/03 1300cc so far Patient reports multiple BMs. Abdominal pain has improved, bowel sounds present, but hypoactive Patient reports nose and throat pain secondary to NG. Leukocystosis has resolved, H/H stable Plan: -Continue NG tube to LIWS -Keep NPO except for icechips: 1 cup every 6 hours -Monitor I/Os -Continue IV fluids -Continue pain control -Continue GI prophylaxis/PPI therapy -Conservative therapy for 48 to 72 hours for small bowel obstruction. If no resolution surgery may be indicated. -Awaiting surgical records from : -[facility] - [facility] [place]: reported surgery 11 months ago - [facility] Subjective Narrative: The patient was seen and examined. He denies any nausea, states that his abdominal pain has improved slightly. He has had multiple bowel movements. He is complaining of a sore nose and a sore throat. He states that he would like the NG tube removed. Objective Vital Signs - Last 8 Hours Temp Pulse Resp BP Pulse Ox 12/03/16 07:17 97.8 F 71 18 122/65 96 12/03/16 04:23 98.0 F 71 18 137/75 94 Intake and Output 12/02/16 12/03/16 12/03/16 23:59 07:59 15:59 Intake Total 0 / 0 1000 / 1000 Output Total 325 / 325 1650 / 1650 Balance -325 / -325 -650 / -650 Intake: IV Fluids 1000 / 1000 0.9 % Sodium Chloride 1, 1000 / 1000 000 ML @ 75 mls/hr IVC . [id number] [facility] Rx#: [id number] Oral 0 / 0 0 / 0 Output: Urine 325 / 325 350 / 350 Gastric Drainage 1300 / 1300 Other: Meal NPO NPO Percent of Meal Consumed 0% Stool Size Large Stool Consistency soft formed Stool Color Brown Blood Glucose* 126 140 - General physical appearance well developed, well nourished, moderate distress, moderate pain - Eyes PERRL, normal ocular movement - ENT atraumatic, normocephalic - Neck Neck exam: trachea midline - Respiratory normal expansion, normal respiratory effort, clear to auscultation - Cardiovascular Cardiovascular exam: Present: RRR, no murmurs/rubs/gallops - Abdomen Abdomen: Present: bowel sounds present (Hypoactive), soft, non tender, distended - Neurologic normal coordination, normal sensation - Musculoskeletal normal posture - Psychiatric oriented to time, oriented to person, oriented to place, speech is normal, memory intact - Labs 12/03/16 04:40 12/03/16 04:40 Diabetes panel 12/03/16 Range/Units 04:40 Sodium 142 (136-145) mEq/L Potassium 3.6 (3.5-4.5) mEq/L Chloride 109 (98-109) mEq/L Carbon Dioxide 23 (19-29) mEq/L BUN 24 (8-26) mg/dL Creatinine 1.06 (0.72-1.25) mg/dL Glucose 127 H (70-99) mg/dL Calcium 8.8 (8.6-10.8) mg/dL Calcium panel 12/03/16 Range/Units 04:40 Calcium 8.8 (8.6-10.8) mg/dL Pituitary panel 12/03/16 Range/Units 04:40 Sodium 142 (136-145) mEq/L Potassium 3.6 (3.5-4.5) mEq/L Chloride 109 (98-109) mEq/L Carbon Dioxide 23 (19-29) mEq/L BUN 24 (8-26) mg/dL Creatinine 1.06 (0.72-1.25) mg/dL Glucose 127 H (70-99) mg/dL Calcium 8.8 (8.6-10.8) mg/dL Adrenal panel 12/03/16 Range/Units 04:40 Sodium 142 (136-145) mEq/L Potassium 3.6 (3.5-4.5) mEq/L Chloride 109 (98-109) mEq/L Carbon Dioxide 23 (19-29) mEq/L BUN 24 (8-26) mg/dL Creatinine 1.06 (0.72-1.25) mg/dL Glucose 127 H (70-99) mg/dL Calcium 8.8 (8.6-10.8) mg/dL Consult Discharge Plan - Plan [facility]errals: [facility]Primary Care Provider[facility] - - Attending Attestation I examined this patient and my medical decision-making was reviewed with the SERVICES CLERK/PA/Advanced Practice Nurse/Resident Physician. I agree with the documented findings, disposition and treatment plan as described except to the extent set forth below. I reviewed with the above assessment and evaluation and agree with the above plan. Await records from outside hospitals regarding previous surgical procedures and pathology. Patient overall improving but will continue with NG tube to low intermittent wall suction.
--- NOTE | 2016-12-03 10:53 | Internal Med Progress Note ---
Date of Encounter: 12/03/16 Time of Encounter: 10:50 - Assessment and plan (1) Small bowel obstruction Current Visit: Yes Status: Acute Assessment and plan: High risk patient with self stated hx of multiple bowel surgeries, recurrent SBO , one with perforation Large effluent from NG tube persists Surgery following Continue bowel rest, IVF, pain meds, strict intake/output monitoring, monitor chem Add lozenges for throat pain due to irritation from NG tube Follow surgery recommendations (2) Lactic acidosis Current Visit: Yes Status: Resolved Assessment and plan: Resolved (3) Diabetes mellitus Current Visit: Yes Status: Chronic Assessment and plan: A1C 6.9 FS acceptable, continue FS monitoring q6 for now with sliding scale Qualifiers: Diabetes mellitus type: type 2 Diabetes mellitus complication status: with unspecified complications Diabetes mellitus assistant terminal manager insulin use: without assistant terminal manager use Qualified Code(s): E11.8 - Type 2 diabetes mellitus with unspecified complications (4) Hypothyroidism Current Visit: Yes Status: Chronic Assessment and plan: Check TSH a.m Hold IV synthroid Resume home dose of synthroid prn feeds Qualifiers: Hypothyroidism type: unspecified Qualified Code(s): E03.9 - Hypothyroidism , unspecified (5) PTSD (post-traumatic stress disorder) Current Visit: Yes Status: Chronic Assessment and plan: Continue home meds - Subjective Interval history: 76 M being managed for SBO he has a history of hypertension, diabetes, hypothyroidism, 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, multiple bowel surgeries, hx of SBO with perforation in the past Work up on admission also revealed lactic acidosis, leukocytosis Lactic acidosis, leukocytosis has improved CBC/Chem, unremarkable Complains of pain in the throat - Constitutional Vitals: Temp Pulse Resp BP Pulse Ox 97.8 F 71 18 122/65 96 12/03/16 07:17 12/03/16 07:17 12/03/16 07:17 12/03/16 07:17 12/03/16 07:17 General appearance: Present: A&O X 3, pleasant, no acute distress, answers questions appropriately - Head Head exam: Present: atraumatic, normocephalic - Eye Eye exam: Present: PERRL, conjuntiva pink, sclera anicteric Pupils: Present: PERRL - ENT Additional comments: Throat exam-hyperemic tonsils bilaterally no exudates noted bilaterally - Neck Neck exam general surgery: Present: supple, trachea midline. Absent: lymphadenopathy - Respiratory Respiratory exam: Present: CTAB. Absent: accessory muscle use, rales, rhonchi, wheezes - Cardiovascular Cardiovascular exam: Present: RRR, +S1, +S2. Absent: diastolic murmur, gallop, rubs, systolic murmur - GI/Abdominal GI/Abdominal exam: Present: hyperactive bowel sounds, normal bowel sounds, soft , no peritoneal signs. Absent: distended, tenderness - Extremities Exam Extremities exam: Present: warm, radial pulses palpable and symetrical. Absent : calf tenderness, cyanotic, pedal edema - Neurological Exam Neurological exam: Present: alert, CN II-XII intact, oriented X3, no focal deficits. Absent: pronater drift, facial droop, speech deficit - Skin Skin exam: Present: dry, intact Internal Medicine: Result - Labs CBC & Chem 7: 12/03/16 04:40 12/03/16 04:40 Labs: Short CBC 12/03/16 Range/Units 04:40 WBC 7.4 (4.3-11.1) K/mcL Hgb 12.8 L (12.9-16.9) g/dL Hct 36.8 L (37.5-50.1) % Plt Count 223 (140-400) K/mcL Neutrophils # 5.3 (1.6-8.9) K/mcL BMP 12/03/16 04:40 Sodium 142 Potassium 3.6 Chloride 109 Carbon Dioxide 23 BUN 24 Creatinine 1.06 Glucose 127 H Calcium 8.8 - ABG Interpretation ABG results: PT/INR, D-dimer PT 12.7 Seconds (9.4-12.1) H 12/01/16 18:04 Consult Discharge Plan - Plan [facility]errals: [facility] [Primary Care Provider] -
[2016-12-03] MEDS ORDERED: *HR* LORazepam 2 MG/ML VIAL IVP ONE (18:29)
[2016-12-03] MEDS ORDERED: Water for inj. (sterile) 10 ML IV ONE (19:32)
--- NOTE | 2016-12-04 02:17 | Event Note ---
Date of Encounter: 12/04/16 Time of Encounter: 02:17 Called to see pt admitted with high grade SBO who is being followed by the surgeons who felt that "they are not doing anything for me". He has NGT in place which is still draining, he is concerned that the NGT is making him uncomfortable, he has not been able to eat or drink and he wanted something else to be done. I counseled him and the daughter at bedside that this was the best we could do in his particular scenario and that our current management seems to be working. I was able to convince him to stay the course, but in the meantime we will give him ice chips, sips of clears for comfort and make changes to his pain medications.
[2016-12-04] MEDS: Insulin LISPRO 300 UNITS/3 ML VIAL SQ SCH ×4 (02:34→22:26)
[2016-12-04] MEDS: *HR* HYDROmorphone (PF) 1 MG/ML SYRINGE IVP PRN ×2 (02:47→07:27)
[2016-12-04 04:38] LABS: Basophils % 0.2 %; Eosinophils # 0.1 K/mcL (0.0-0.6); Eosinophils % 1.1 %; Hematocrit 35.7 % (37.5-50.1); Hemoglobin 12.4 g/dL (12.9-16.9); Immature Granulocytes % 0.6 % (0-4); Lymphocytes # 0.8 K/mcL (0.6-4.6); Lymphocytes % 14.2 %; Mean Corpuscular HGB Conc 34.7 g/dL (31.6-35.5); Mean Corpuscular Volume 86.2 fL (83.0-100.0); Mean Platelet Volume 10.8 fL (9.4-12.4); Monocytes # 0.6 K/mcL (0.0-1.3); Monocytes % 11.8 %; Neutrophils # 3.9 K/mcL (1.6-8.9); Platelet Count 223 K/mcL (140-400); Red Blood Count 4.14 M/mcL (4.19-5.50); Red Cell Distribution Width 13.8 % (11.5-14.5); Segmented Neutrophils % 72.1 %
[2016-12-04 04:54] LABS: BUN/Creatinine Ratio 23 (6-26); Blood Urea Nitrogen 20 mg/dL (8-26); Calcium 8.8 mg/dL (8.6-10.8); Carbon Dioxide 21 mEq/L (19-29); Chloride 110 mEq/L (98-109); Glucose 114 mg/dL (70-99); Osmolality,Calculated 295 (280-300); Potassium 3.5 mEq/L (3.5-4.5); Sodium 141 mEq/L (136-145); eGFR For African Americans > 60 (> 60); eGFR For Non-African Americans > 60 (> 60)
[2016-12-04] MEDS: 0.9 % Sodium Chloride 1,000 ML IVC SCH ×2 (06:22→20:17)
[2016-12-04] MEDS: Pantoprazole 40 MG VIAL IVP SCH (06:22)
[2016-12-04] MEDS: *HR* Heparin 5,000 UNIT/ML VIAL SQ SCH ×2 (06:28→17:09)
--- NOTE | 2016-12-04 09:06 | General Surgery Progress Note ---
Date of Encounter: 12/05/16 Time of Encounter: 09:03 - Assessment and Plan (1) Small bowel obstruction Current Visit: Yes Status: Acute High grade small bowel obstruction. [facility] scan 12/01/16 shows a hyperattenuating 3 cm intraluminal lesion in the mid to distal ileum, findings concerning for high-grade small bowel obstruction in the left abdomen. NG tube remains in place with decreased output: 12/03 1900cc, 12/04 375cc so far Patient reports multiple BMs. Abdominal pain has improved, bowel sounds present Patient reports nose and throat pain secondary to NG. He is requesting that it be removed. Leukocystosis has resolved, H/H stable Plan: -Remove NG -Advance to clear liquid diet -Monitor I/Os -Continue IV fluids -Continue pain control -Continue GI prophylaxis/PPI therapy Subjective Narrative: The patient was seen and examined. He has been having a very difficult time tolerating the and NG-tube overnight. He states that it hurts his nose and his throat and makes it difficult to sleep. He has had several bowel movements yesterday and is passing gas. He also states that he has had a few sips of water and has tolerated that as well. He has significant decrease in the amount of abdominal pain and distention he previously had. He is requesting that NG tube be removed today. Objective Vital Signs - Last 8 Hours Temp Pulse Resp BP Pulse Ox 12/04/16 06:40 97.6 F 69 16 171/86 93 12/04/16 03:30 98.5 F 72 16 168/64 95 Intake and Output 12/03/16 12/04/16 12/04/16 23:59 07:59 15:59 Intake Total 1388 / 1388 612 / 612 0 / 0 Output Total 700 / 700 Balance 1388 / 1388 -88 / -88 0 / 0 Intake: IV Fluids 1388 / 1388 612 / 612 0.9 % Sodium Chloride 1, 1388 / 1388 612 / 612 000 ML @ 75 mls/hr IVC . [id number] [facility] Rx#: [id number] Oral 0 / 0 0 / 0 0 / 0 Output: Urine 325 / 325 Gastric Drainage 375 / 375 Other: Meal NPO NPO Percent of Meal Consumed 0% Weight 99.382 kg Blood Glucose* 112 Patient Weight 12/04/16 23:59 Weight 99.382 kg - General physical appearance well developed, well nourished, moderate distress, moderate pain - Eyes PERRL - ENT atraumatic, normocephalic, Other (NG tube in place) - Neck Neck exam: trachea midline, other - Respiratory normal expansion, normal respiratory effort, clear to auscultation - Cardiovascular Cardiovascular exam: Present: RRR, no murmurs/rubs/gallops - Abdomen Abdomen: Present: bowel sounds present, soft, tender. Absent: distended Abdominal Tenderness: RUQ, RLQ - Integumentary no rash, no growths, no abnormal pigmentation - Neurologic normal coordination, normal sensation - Psychiatric oriented to time, oriented to person, oriented to place, speech is normal, memory intact - Labs 12/04/16 03:53 12/04/16 03:53 Diabetes panel 12/04/16 Range/Units 03:53 Sodium 141 (136-145) mEq/L Potassium 3.5 (3.5-4.5) mEq/L Chloride 110 H (98-109) mEq/L Carbon Dioxide 21 (19-29) mEq/L BUN 20 (8-26) mg/dL Creatinine 0.88 (0.72-1.25) mg/dL Glucose 114 H (70-99) mg/dL Calcium 8.8 (8.6-10.8) mg/dL Thyroid panel 12/04/16 Range/Units 03:53 TSH 1.809 (0.350-4.840) mcIU/mL Calcium panel 12/04/16 Range/Units 03:53 Calcium 8.8 (8.6-10.8) mg/dL Pituitary panel 12/04/16 12/04/16 Range/Units 03:53 03:53 Sodium 141 (136-145) mEq/L Potassium 3.5 (3.5-4.5) mEq/L Chloride 110 H (98-109) mEq/L Carbon Dioxide 21 (19-29) mEq/L BUN 20 (8-26) mg/dL Creatinine 0.88 (0.72-1.25) mg/dL Glucose 114 H (70-99) mg/dL Calcium 8.8 (8.6-10.8) mg/dL TSH 1.809 (0.350-4.840) mcIU/mL Adrenal panel 05/23/17 Range/Units 03:53 Sodium 141 (136-145) mEq/L Potassium 3.5 (3.5-4.5) mEq/L Chloride 110 H (98-109) mEq/L Carbon Dioxide 21 (19-29) mEq/L BUN 20 (8-26) mg/dL Creatinine 0.88 (0.72-1.25) mg/dL Glucose 114 H (70-99) mg/dL Calcium 8.8 (8.6-10.8) mg/dL Consult Discharge Plan - Plan Referrals: [facility] [Outside] - Attending Attestation I examined this patient and my medical decision-making was reviewed with the ROAD MACHINE RUNNER/PA/Advanced Practice Nurse/Resident Physician. I agree with the documented findings, disposition and treatment plan as described except to the extent set forth below. The above evaluation and assessment and agree with the above plan. NG tube has been removed and the patient is been tolerating clear liquids. He denies any current abdominal pain symptoms and on examination he is free to palpation. Likely advanced to a soft diet in the a.m. and if tolerates okay to discharge home with follow-up.
[2016-12-04] MEDS ORDERED: *HR* HYDROmorphone (PF) 1 MG/ML SYRINGE IVP PRN (10:59)
[2016-12-04] MEDS: *HR* OxyCODONE Immed Rel 5 MG TABLET PO PRN (15:41)
[2016-12-04] MEDS ORDERED: (Diclofenac Sodium [Voltaren] 1 APPL) TP PRN (16:41)
--- NOTE | 2016-12-04 16:51 | Internal Med Progress Note ---
Date of Encounter: 12/04/16 Time of Encounter: 10:00 - Assessment and plan (1) DVT prophylaxis Current Visit: Yes Status: Acute Assessment and plan: heparin subcutaneously (2) Small bowel obstruction Current Visit: Yes Status: Acute Assessment and plan: improved after treatment. NG tube has been removed today. continue closely monitor patient. advance diet as tolerated. (3) Diabetes mellitus Current Visit: Yes Status: Chronic Assessment and plan: A1C 6.9 FS acceptable, continue sliding scale Qualifiers: Diabetes mellitus type: type 2 Diabetes mellitus complication status: with unspecified complications Diabetes mellitus mcfp insulin use: without intermediate accountant use Qualified Code(s): E11.8 - Type 2 diabetes mellitus with unspecified complications (4) Hypothyroidism Current Visit: Yes Status: Chronic Assessment and plan: Continue home medication Synthroid Qualifiers: Hypothyroidism type: unspecified Qualified Code(s): E03.9 - Hypothyroidism , unspecified - Time Spent With Patient 25 - 35 minutes - Subjective Interval history: Patient is a 76-year-old male admitted for small bowel obstruction. His past medical history is significant for diabetes, hypertension, hypothyroidism. Patient was seen and examined. abdominal pain has improved after treatment. Vitals are stable. Surgical consult appreciated, NG tube has been removed today. Clear liquid diet started. We will continue closely monitor patient. - Constitutional Vitals: Temp Pulse Resp BP Pulse Ox 98.4 F 72 16 159/83 97 12/04/16 14:42 12/04/16 14:44 12/04/16 14:44 12/04/16 14:44 12/04/16 14:44 General appearance: Present: A&O X 3, pleasant, no acute distress, answers questions appropriately - Head Head exam: Present: atraumatic, normocephalic - Eye Eye exam: Present: PERRL, conjuntiva pink, sclera anicteric Pupils: Present: PERRL - Neck Neck exam general surgery: Present: supple, trachea midline. Absent: lymphadenopathy - Respiratory Respiratory exam: Present: CTAB. Absent: accessory muscle use, rales, rhonchi, wheezes - Cardiovascular Cardiovascular exam: Present: RRR, +S1, +S2. Absent: diastolic murmur, gallop, rubs, systolic murmur - GI/Abdominal GI/Abdominal exam: Present: normal bowel sounds, soft, no peritoneal signs. Absent: distended, tenderness - Extremities Exam Extremities exam: Present: warm, radial pulses palpable and symetrical. Absent : calf tenderness, cyanotic, pedal edema - Neurological Exam Neurological exam: Present: CN II-XII intact, oriented X3, no focal deficits. Absent: pronater drift, facial droop, speech deficit - Skin Skin exam: Present: dry, intact Internal Medicine: Result - Labs CBC & Chem 7: 12/04/16 03:53 12/04/16 03:53 Labs: Short CBC 12/04/16 Range/Units 03:53 WBC 5.3 (4.3-11.1) K/mcL Hgb 12.4 L (12.9-16.9) g/dL Hct 35.7 L (37.5-50.1) % Plt Count 223 (140-400) K/mcL Neutrophils # 3.9 (1.6-8.9) K/mcL BMP 12/04/16 03:53 Sodium 141 Potassium 3.5 Chloride 110 H Carbon Dioxide 21 BUN 20 Creatinine 0.88 Glucose 114 H Calcium 8.8 - ABG Interpretation ABG results: PT/INR, D-dimer PT 12.7 Seconds (9.4-12.1) H 12/01/16 18:04 Consult Discharge Plan - Plan Referrals: [facility] [Outside]
[2016-12-04] MEDS: Pregabalin 50 MG CAPSULE PO SCH (20:15)
[2016-12-04] MEDS: Cyanocobalamin (B-12) 1,000 MCG TABLET PO SCH (20:16)
[2016-12-04] MEDS: Melatonin 3 MG TABLET PO SCH (20:16)
[2016-12-04] MEDS: Sennosides/Docusate Sodium TABLET PO SCH (20:16)
[2016-12-05] MEDS: *HR* OxyCODONE Immed Rel 5 MG TABLET PO PRN ×2 (00:13→21:08)
[2016-12-05] MEDS: Ondansetron 4 MG/2 ML VIAL IVP PRN ×3 (00:13→21:08)
[2016-12-05] MEDS: Pantoprazole 40 MG VIAL IVP SCH (06:00)
[2016-12-05] MEDS: *HR* Heparin 5,000 UNIT/ML VIAL SQ SCH ×2 (06:01→19:27)
[2016-12-05 06:30] LABS: Basophils % 0.6 %; Eosinophils # 0.1 K/mcL (0.0-0.6); Eosinophils % 1.8 %; Hematocrit 35.2 % (37.5-50.1); Hemoglobin 12.4 g/dL (12.9-16.9); Immature Granulocytes % 1.2 % (0-4); Lymphocytes # 0.9 K/mcL (0.6-4.6); Lymphocytes % 18.8 %; Mean Corpuscular HGB Conc 35.2 g/dL (31.6-35.5); Mean Corpuscular Hemoglobin 30.6 pg (28.0-33.3); Mean Corpuscular Volume 86.9 fL (83.0-100.0); Mean Platelet Volume 10.6 fL (9.4-12.4); Monocytes # 0.7 K/mcL (0.0-1.3); Monocytes % 14.1 %; Neutrophils # 3.1 K/mcL (1.6-8.9); Platelet Count 249 K/mcL (140-400); Red Blood Count 4.05 M/mcL (4.19-5.50); Red Cell Distribution Width 13.7 % (11.5-14.5); Segmented Neutrophils % 63.5 %
[2016-12-05 06:49] LABS: BUN/Creatinine Ratio 23 (6-26); Blood Urea Nitrogen 19 mg/dL (8-26); Calcium 8.7 mg/dL (8.6-10.8); Carbon Dioxide 17 mEq/L (19-29); Chloride 111 mEq/L (98-109); Glucose 96 mg/dL (70-99); Osmolality,Calculated 290 (280-300); Potassium 3.8 mEq/L (3.5-4.5); Sodium 139 mEq/L (136-145); eGFR For African Americans > 60 (> 60); eGFR For Non-African Americans > 60 (> 60)
[2016-12-05] MEDS: Insulin LISPRO 300 UNITS/3 ML VIAL SQ SCH ×4 (08:34→21:29)
[2016-12-05] MEDS: Pregabalin 75 MG CAPSULE PO SCH ×2 (09:27→14:19)
[2016-12-05] MEDS: Cyanocobalamin (B-12) 1,000 MCG TABLET PO SCH ×2 (09:27→21:08)
[2016-12-05] MEDS: Sennosides/Docusate Sodium TABLET PO SCH ×2 (09:27→21:08)
[2016-12-05] MEDS: 0.9 % Sodium Chloride 1,000 ML IVC SCH (09:35)
--- NOTE | 2016-12-05 09:51 | General Surgery Progress Note ---
Date of Encounter: 12/06/16 Time of Encounter: 07:00 - Assessment and Plan (1) Small bowel obstruction Current Visit: Yes Status: Acute High grade small bowel obstruction. [facility] scan 12/01/16 shows a hyperattenuating 3 cm intraluminal lesion in the mid to distal ileum, findings concerning for high-grade small bowel obstruction in the left abdomen. Leukocytosis resolved. Patient is tolerating clear liquids well. Abdominal pain And bloating have returned. Bowel movements and flatus: Patient did not have any yesterday or today. Vital signs stable. Patient is making urine without difficulty. Abdominal exam : Mild tympany, diffuse abdominal tenderness to palpation. No masses. No rebound, guarding, peritoneal signs. Nonsurgical abdomen. Hypoactive bowel sounds. We will keep patient on clear liquids. If patient develops flatus or has a bowel movement later today will consider advancing his diet to full liquids. Plan: Small bowel obstruction -Serial abdominal exams -Monitoring of I/O's -Continue Clear liquids. -Continue pain control -Continue GI prophylaxis/PPI therapy -Continued daily monitoring for flatus and bowel movements. -We will keep patient on clear liquids. If patient develops flatus or has a bowel movement later today will consider advancing his diet to full liquids. Subjective Patient reports: still having pain, tolerating liquids well, voiding w/o difficulty, no flatus, no bowel movement, nausea, afebrile Narrative: The patient was seen and examined. He states that he developed nausea and abdominal pain overnight that was severe bouts of retching, gagging and diffuse abdominal pain that was not alleviated when he requested assistance. Patient states that he did not sleep well. Patient reports that he has not had any bowel movements yesterday or flatus. He reports that his bloating has increased. Objective Vital Signs - Last 8 Hours Temp Pulse Resp BP Pulse Ox 12/05/16 06:45 97.7 F 65 16 149/72 97 12/05/16 03:59 168/64 12/05/16 03:33 97.7 F 66 16 170/77 98 Intake and Output 12/04/16 12/05/16 12/05/16 23:59 07:59 15:59 Intake Total 1240.0 / 1240.0 824 / 824 366 / 366 Output Total 0 / 0 450 / 450 Balance 1240.0 / 1240.0 374 / 374 366 / 366 Intake: IV Fluids 1000.0 / 1000.0 674 / 674 326 / 326 0.9 % Sodium Chloride 1, 1000.0 / 1000.0 674 / 674 326 / 326 000 ML @ 75 mls/hr IVC . [id number] [facility] Rx#: [id number] Oral 240 / 240 150 / 150 40 / 40 Output: Urine 0 / 0 450 / 450 Other: Meal Clear Clear Percent of Meal Consumed 0% # Bowel Movements 0 Weight 99.155 kg Blood Glucose* 98 98 Patient Weight 12/05/16 23:59 Weight 99.155 kg - General physical appearance well developed, well nourished, no distress, moderate pain, obese - Eyes PERRL, normal ocular movement - ENT normal nares, normal mucosa, atraumatic, normocephalic, CN 2-12 grossly intact - Neck Neck exam: trachea midline, no venous distension - Respiratory normal expansion, normal respiratory effort, clear to auscultation - Cardiovascular Cardiovascular exam: Present: RRR, no murmurs/rubs/gallops - Abdomen Abdomen: Present: bowel sounds present (Hypoactive), soft, tender Abdominal Tenderness: diffusely - Integumentary no rash, no abnormal pigmentation - Neurologic CN 2-12 grossly intact, normal coordination, normal sensation - Musculoskeletal normal gait, normal posture - Psychiatric oriented to time, oriented to person, oriented to place, speech is normal - Labs 12/06/16 04:41 12/06/16 04:41 Diabetes panel 12/05/16 Range/Units 05:58 Sodium 139 (136-145) mEq/L Potassium 3.8 (3.5-4.5) mEq/L Chloride 111 H (98-109) mEq/L Carbon Dioxide 17 L (19-29) mEq/L BUN 19 (8-26) mg/dL Creatinine 0.84 (0.72-1.25) mg/dL Glucose 96 (70-99) mg/dL Calcium 8.7 (8.6-10.8) mg/dL Calcium panel 12/05/16 Range/Units 05:58 Calcium 8.7 (8.6-10.8) mg/dL Pituitary panel 12/05/16 Range/Units 05:58 Sodium 139 (136-145) mEq/L Potassium 3.8 (3.5-4.5) mEq/L Chloride 111 H (98-109) mEq/L Carbon Dioxide 17 L (19-29) mEq/L BUN 19 (8-26) mg/dL Creatinine 0.84 (0.72-1.25) mg/dL Glucose 96 (70-99) mg/dL Calcium 8.7 (8.6-10.8) mg/dL Adrenal panel 12/05/16 Range/Units 05:58 Sodium 139 (136-145) mEq/L Potassium 3.8 (3.5-4.5) mEq/L Chloride 111 H (98-109) mEq/L Carbon Dioxide 17 L (19-29) mEq/L BUN 19 (8-26) mg/dL Creatinine 0.84 (0.72-1.25) mg/dL Glucose 96 (70-99) mg/dL Calcium 8.7 (8.6-10.8) mg/dL Consult Discharge Plan - Plan Referrals: [facility] [Outside] - 12/20/16 8:15 am - Attending Attestation I examined this patient and my medical decision-making was reviewed with the STEWARDESSES TEACHER/PA/Advanced Practice Nurse/Resident Physician. I agree with the documented findings, disposition and treatment plan as described except to the extent set forth below. I reviewed the evaluation of physical examinations listed above. Patient had decreased flatus and bowel movements with an episode of vomiting yesterday evening. Mild tympany on examination but minimal pain to palpation right greater than left. Agree with holding onto clears and will continue to evaluate. To consider small bowel follow-through symptoms continue.
[2016-12-05] MEDS ORDERED: Bisacodyl 10 MG RECTAL SUPPOSITORY RC ONE (15:41)
--- NOTE | 2016-12-05 15:45 | Internal Med Progress Note ---
Date of Encounter: 12/05/16 Time of Encounter: 10:00 - Assessment and plan (1) Small bowel obstruction Current Visit: Yes Status: Acute Assessment and plan: improved after treatment. NG tube has been removed today. Slow improvement, will keep clear liquid diet. Surgical consult is on case. continue closely monitor patient. (2) Diabetes mellitus Current Visit: Yes Status: Chronic Assessment and plan: A1C 6.9 FS acceptable, continue sliding scale Qualifiers: Diabetes mellitus type: type 2 Diabetes mellitus complication status: with unspecified complications Diabetes mellitus jail insulin use: without jail use Qualified Code(s): E11.8 - Type 2 diabetes mellitus with unspecified complications (3) Hypothyroidism Current Visit: Yes Status: Chronic Assessment and plan: Continue home medication Synthroid Qualifiers: Hypothyroidism type: unspecified Qualified Code(s): E03.9 - Hypothyroidism , unspecified (4) DVT prophylaxis Current Visit: Yes Status: Acute Assessment and plan: heparin subcutaneously - Subjective Interval history: Patient is a 76-year-old male admitted for small bowel obstruction. His past medical history is significant for diabetes, hypertension, hypothyroidism. Patient was seen and examined. Still abdominal fullness and mild pain. X-ray abdomen shows a possible ileus. Vitals are stable. Surgical consult appreciated. We will keep Clear liquid diet now. Give Dulcolax suppository once. Closely monitor patient. - Constitutional Vitals: Temp Pulse Resp BP Pulse Ox 98.0 F 67 16 134/76 97 12/05/16 14:38 12/05/16 14:38 12/05/16 14:38 12/05/16 14:38 12/05/16 14:38 General appearance: Present: A&O X 3, pleasant, no acute distress, answers questions appropriately - Head Head exam: Present: atraumatic, normocephalic - Eye Eye exam: Present: PERRL, conjuntiva pink, sclera anicteric Pupils: Present: PERRL - Neck Neck exam general surgery: Present: supple, trachea midline. Absent: lymphadenopathy - Respiratory Respiratory exam: Present: CTAB. Absent: accessory muscle use, rales, rhonchi, wheezes - Cardiovascular Cardiovascular exam: Present: RRR, +S1, +S2. Absent: diastolic murmur, gallop, rubs, systolic murmur - GI/Abdominal GI/Abdominal exam: Present: normal bowel sounds, soft, no peritoneal signs. Absent: distended, tenderness - Extremities Exam Extremities exam: Present: warm, radial pulses palpable and symetrical. Absent : calf tenderness, cyanotic, pedal edema - Neurological Exam Neurological exam: Present: CN II-XII intact, oriented X3, no focal deficits. Absent: pronater drift, facial droop, speech deficit - Skin Skin exam: Present: dry, intact Internal Medicine: Result - Labs CBC & Chem 7: 12/05/16 05:58 12/05/16 05:58 Labs: Short CBC 12/05/16 Range/Units 05:58 WBC 5.0 (4.3-11.1) K/mcL Hgb 12.4 L (12.9-16.9) g/dL Hct 35.2 L (37.5-50.1) % Plt Count 249 (140-400) K/mcL Neutrophils # 3.1 (1.6-8.9) K/mcL BMP 12/05/16 05:58 Sodium 139 Potassium 3.8 Chloride 111 H Carbon Dioxide 17 L BUN 19 Creatinine 0.84 Glucose 96 Calcium 8.7 - ABG Interpretation ABG results: PT/INR, D-dimer PT 12.7 Seconds (9.4-12.1) H 12/01/16 18:04 - Impressions Impressions Abdomen X-Ray 12/05/16 14:33 IMPRESSION: A few borderline to mildly dilated small bowel loops potentially related to ileus. The findings do not suggest obstruction. D/ / Severiano Moreno MD / Severiano Moreno MD Interpreting Provider: Severiano Moreno MD Consult Discharge Plan - Plan Referrals: [facility] [Outside] - 12/20/16 8:15 am
[2016-12-05] MEDS: Pregabalin 50 MG CAPSULE PO SCH (21:07)
[2016-12-05] MEDS: Melatonin 3 MG TABLET PO SCH ×2 (21:08→21:31)
[2016-12-06 05:11] LABS: Basophils % 0.6 %; Eosinophils # 0.1 K/mcL (0.0-0.6); Eosinophils % 1.7 %; Hematocrit 35.1 % (37.5-50.1); Hemoglobin 12.2 g/dL (12.9-16.9); Immature Granulocytes % 2.4 % (0-4); Lymphocytes # 1.1 K/mcL (0.6-4.6); Lymphocytes % 19.7 %; Mean Corpuscular HGB Conc 34.8 g/dL (31.6-35.5); Mean Corpuscular Hemoglobin 29.5 pg (28.0-33.3); Mean Corpuscular Volume 84.8 fL (83.0-100.0); Mean Platelet Volume 10.1 fL (9.4-12.4); Monocytes # 0.9 K/mcL (0.0-1.3); Monocytes % 17.1 %; Neutrophils # 3.2 K/mcL (1.6-8.9); Platelet Count 246 K/mcL (140-400); Red Blood Count 4.14 M/mcL (4.19-5.50); Red Cell Distribution Width 13.5 % (11.5-14.5); Segmented Neutrophils % 58.5 %
[2016-12-06] MEDS: *HR* Heparin 5,000 UNIT/ML VIAL SQ SCH ×2 (05:20→18:04)
[2016-12-06 05:26] LABS: BUN/Creatinine Ratio 17 (6-26); Blood Urea Nitrogen 16 mg/dL (8-26); Calcium 8.5 mg/dL (8.6-10.8); Carbon Dioxide 20 mEq/L (19-29); Chloride 109 mEq/L (98-109); Glucose 80 mg/dL (70-99); Osmolality,Calculated 288 (280-300); Potassium 3.5 mEq/L (3.5-4.5); Sodium 139 mEq/L (136-145); eGFR For African Americans > 60 (> 60); eGFR For Non-African Americans > 60 (> 60)
[2016-12-06] MEDS: 0.9 % Sodium Chloride 1,000 ML IVC SCH (05:48)
[2016-12-06] MEDS: Insulin LISPRO 300 UNITS/3 ML VIAL SQ SCH ×4 (09:03→21:00)
[2016-12-06] MEDS: Cyanocobalamin (B-12) 1,000 MCG TABLET PO SCH ×2 (09:17→21:00)
[2016-12-06] MEDS: Sennosides/Docusate Sodium TABLET PO SCH ×2 (09:17→21:00)
[2016-12-06] MEDS: Pregabalin 75 MG CAPSULE PO SCH ×2 (09:18→15:47)
--- NOTE | 2016-12-06 09:36 | General Surgery Progress Note ---
Date of Encounter: 12/06/16 Time of Encounter: 09:34 - Assessment and Plan (1) Small bowel obstruction Current Visit: Yes Status: Acute Patient states that his abdomen feels much better Jose R's felt better than he has for a "long time." Will advance his diet to full liquids and continue to monitor. If he continues to tolerate than likely advance to soft food diet. We will hold off on small bowel follow-through unless he has recurrence of the nausea/vomiting symptoms. Subjective Patient reports: other (The patient states he has had flatus and BMs. Feels much better. Denies any nausea.) Objective Vital Signs - Last 8 Hours Temp Pulse Resp BP Pulse Ox 12/06/16 09:16 96 12/06/16 07:55 98.0 F 64 20 128/77 96 Intake and Output 12/05/16 12/06/16 12/06/16 23:59 07:59 15:59 Intake Total 800 / 800 1000 / 1000 240 / 240 Output Total 200 / 200 400 / 400 300 / 300 Balance 600 / 600 600 / 600 -60 / -60 Intake: IV Fluids 1000 / 1000 0.9 % Sodium Chloride 1, 1000 / 1000 000 ML @ 75 mls/hr IVC . [id number] JOSI Rx#: [id number] Oral 800 / 800 0 / 0 240 / 240 Output: Urine 0 / 0 400 / 400 300 / 300 Urine/Stool Mix 200 / 200 Other: Weight 99.155 kg Blood Glucose* 85 77 Patient Weight 12/06/16 23:59 Weight 99.155 kg - Abdomen Abdomen: Present: bowel sounds present, non tender - Labs 12/06/16 04:41 12/06/16 04:41 Diabetes panel 12/06/16 Range/Units 04:41 Sodium 139 (136-145) mEq/L Potassium 3.5 (3.5-4.5) mEq/L Chloride 109 (98-109) mEq/L Carbon Dioxide 20 (19-29) mEq/L BUN 16 (8-26) mg/dL Creatinine 0.92 (0.72-1.25) mg/dL Glucose 80 (70-99) mg/dL Calcium 8.5 L (8.6-10.8) mg/dL Calcium panel 12/06/16 Range/Units 04:41 Calcium 8.5 L (8.6-10.8) mg/dL Pituitary panel 12/06/16 Range/Units 04:41 Sodium 139 (136-145) mEq/L Potassium 3.5 (3.5-4.5) mEq/L Chloride 109 (98-109) mEq/L Carbon Dioxide 20 (19-29) mEq/L BUN 16 (8-26) mg/dL Creatinine 0.92 (0.72-1.25) mg/dL Glucose 80 (70-99) mg/dL Calcium 8.5 L (8.6-10.8) mg/dL Adrenal panel 12/06/16 Range/Units 04:41 Sodium 139 (136-145) mEq/L Potassium 3.5 (3.5-4.5) mEq/L Chloride 109 (98-109) mEq/L Carbon Dioxide 20 (19-29) mEq/L BUN 16 (8-26) mg/dL Creatinine 0.92 (0.72-1.25) mg/dL Glucose 80 (70-99) mg/dL Calcium 8.5 L (8.6-10.8) mg/dL Consult Discharge Plan - Plan Referrals: [facility] [Outside] - 12/20/16 8:15 am
[2016-12-06] MEDS: *HR* OxyCODONE Immed Rel 5 MG TABLET PO PRN (15:48)
--- NOTE | 2016-12-06 16:58 | Internal Med Progress Note ---
Date of Encounter: 12/06/16 Time of Encounter: 10:00 - Assessment and plan (1) Small bowel obstruction Current Visit: Yes Status: Acute Assessment and plan: improved after treatment. NG tube has been removed. Had BM yesterday. Diet advanced to full liquid. Surgical consult is on case. continue closely monitor patient. (2) Diabetes mellitus Current Visit: Yes Status: Chronic Assessment and plan: A1C 6.9 FS acceptable, continue sliding scale Qualifiers: Diabetes mellitus type: type 2 Diabetes mellitus complication status: with unspecified complications Diabetes mellitus longterm insulin use: without long lines operator use Qualified Code(s): E11.8 - Type 2 diabetes mellitus with unspecified complications (3) Hypothyroidism Current Visit: Yes Status: Chronic Assessment and plan: Continue home medication Synthroid Qualifiers: Hypothyroidism type: unspecified Qualified Code(s): E03.9 - Hypothyroidism , unspecified (4) DVT prophylaxis Current Visit: Yes Status: Acute Assessment and plan: heparin subcutaneously (5) General weakness Current Visit: Yes Status: Acute Assessment and plan: PTOT evaluation recommended ECF discharge, patient refused to go to ECF. We will arrange home health and home PT and OT - Time Spent With Patient 25 - 35 minutes - Subjective Interval history: Patient is a 76-year-old male admitted for small bowel obstruction. His past medical history is significant for diabetes, hypertension, hypothyroidism. Patient was seen and examined. Had BM yesterday. Feels much better. Vitals stable. Diet advanced to full liquid. Surgical on case. - Constitutional Vitals: Temp Pulse Resp BP Pulse Ox 97.5 F L 63 18 110/70 96 12/06/16 16:01 12/06/16 16:01 12/06/16 16:01 12/06/16 16:01 12/06/16 16:01 General appearance: Present: A&O X 3, pleasant, no acute distress, answers questions appropriately - Head Head exam: Present: atraumatic, normocephalic - Eye Eye exam: Present: PERRL, conjuntiva pink, sclera anicteric Pupils: Present: PERRL - Neck Neck exam general surgery: Present: supple, trachea midline. Absent: lymphadenopathy - Respiratory Respiratory exam: Present: CTAB. Absent: accessory muscle use, rales, rhonchi, wheezes - Cardiovascular Cardiovascular exam: Present: RRR, +S1, +S2. Absent: diastolic murmur, gallop, rubs, systolic murmur - GI/Abdominal GI/Abdominal exam: Present: normal bowel sounds, soft, no peritoneal signs. Absent: distended, tenderness - Extremities Exam Extremities exam: Present: warm, radial pulses palpable and symetrical. Absent : calf tenderness, cyanotic, pedal edema - Neurological Exam Neurological exam: Present: CN II-XII intact, oriented X3, no focal deficits. Absent: pronater drift, facial droop, speech deficit - Skin Skin exam: Present: dry, intact Internal Medicine: Result - Labs CBC & Chem 7: 12/06/16 04:41 12/06/16 04:41 Labs: Short CBC 12/06/16 Range/Units 04:41 WBC 5.4 (4.3-11.1) K/mcL Hgb 12.2 L (12.9-16.9) g/dL Hct 35.1 L (37.5-50.1) % Plt Count 246 (140-400) K/mcL Neutrophils # 3.2 (1.6-8.9) K/mcL BMP 12/06/16 04:41 Sodium 139 Potassium 3.5 Chloride 109 Carbon Dioxide 20 BUN 16 Creatinine 0.92 Glucose 80 Calcium 8.5 L - ABG Interpretation ABG results: PT/INR, D-dimer PT 12.7 Seconds (9.4-12.1) H 12/01/16 18:04 Consult Discharge Plan - Plan Referrals: [facility] [Outside] - 12/20/16 8:15 am
[2016-12-06] MEDS ORDERED: *HR* HYDROmorphone (PF) 1 MG/ML SYRINGE IVP ONE (20:43)
[2016-12-06] MEDS: Melatonin 3 MG TABLET PO SCH (21:00)
[2016-12-06] MEDS: Pregabalin 50 MG CAPSULE PO SCH (21:00)
[2016-12-06] MEDS: Ondansetron 4 MG/2 ML VIAL IVP PRN (21:12)
[2016-12-07 05:03] LABS: Basophils # 0.1 K/mcL (0.0-0.2); Basophils % 0.8 %; Eosinophils # 0.1 K/mcL (0.0-0.6); Eosinophils % 1.3 %; Hematocrit 34.7 % (37.5-50.1); Hemoglobin 12.1 g/dL (12.9-16.9); Immature Granulocytes % 2.4 % (0-4); Lymphocytes # 1.2 K/mcL (0.6-4.6); Lymphocytes % 16.4 %; Mean Corpuscular HGB Conc 34.9 g/dL (31.6-35.5); Mean Corpuscular Volume 85.9 fL (83.0-100.0); Mean Platelet Volume 10.3 fL (9.4-12.4); Monocytes % 13.5 %; Platelet Count 256 K/mcL (140-400); Red Blood Count 4.04 M/mcL (4.19-5.50); Red Cell Distribution Width 13.5 % (11.5-14.5); Segmented Neutrophils % 65.6 %
[2016-12-07 05:22] LABS: BUN/Creatinine Ratio 17 (6-26); Blood Urea Nitrogen 16 mg/dL (8-26); Calcium 8.4 mg/dL (8.6-10.8); Carbon Dioxide 23 mEq/L (19-29); Chloride 109 mEq/L (98-109); Glucose 97 mg/dL (70-99); Osmolality,Calculated 289 (280-300); Potassium 3.7 mEq/L (3.5-4.5); Sodium 139 mEq/L (136-145); eGFR For African Americans > 60 (> 60); eGFR For Non-African Americans > 60 (> 60)
[2016-12-07] MEDS: *HR* Heparin 5,000 UNIT/ML VIAL SQ SCH ×2 (06:26→17:44)
--- NOTE | 2016-12-07 07:54 | General Surgery Progress Note ---
Date of Encounter: 12/07/16 Time of Encounter: 06:00 - Assessment and Plan (1) Small bowel obstruction Current Visit: Yes Status: Acute High grade small bowel obstruction. AR CT scan 12/01/16 shows a hyperattenuating 3 cm intraluminal lesion in the mid to distal ileum, findings concerning for high-grade small bowel obstruction in the left abdomen. Patient is tolerating clear liquids well. Abdominal cramping when stooling with loud gas. Denies nausea or vomiting. Bowel movements and flatus: Patient This morning the patient awoke and had release of stool all over his person. Patient is irritable. Vital signs stable. Afebrile. Patient is making urine without difficulty. Abdominal exam: No tenderness to palpation. No masses. No rebound, guarding, peritoneal signs. Nonsurgical abdomen. Normal active bowel sounds. We will keep advancing patients diet as he tolerates. Patient states that advancing yesterday caused him more gas and may have been the reason that he woke up covered in loose stool. Plan: Small bowel obstruction -Serial abdominal exams -Monitoring of I/O's -Continue to advance diet to soft food as patient tolerates. Patient may desire to have clear/soft mix. -Continue pain control especially at night -Continue GI prophylaxis/PPI therapy -Continued daily monitoring for flatus and bowel movements. -If pt continues to improve may consider DC. Subjective Patient reports: feels better, pain is less, tolerating liquids well, voiding w/ o difficulty, flatus, bowel movement, afebrile Narrative: The patient was seen and examined. Patient reports that he tolerated his full liquid diet well and felt his bowels moving quicker yesterday. This morning the patient awoke and had release of stool all over his person. Patient states that he has "never had a bowel movement quite like this" states that he woke up wet with stool. Patient reports significant gas passage. He reports that he was unable to ambulate yesterday because no one came in to walk him. He reports that his abdominal tenderness has resolved. Objective Vital Signs - Last 8 Hours Temp Pulse Resp BP Pulse Ox 12/07/16 04:36 98.2 F 61 18 130/79 97 Intake and Output 12/06/16 12/06/16 12/07/16 15:59 23:59 07:59 Intake Total 240 / 240 60 / 60 Output Total 600 / 600 650 / 650 Balance -360 / -360 -590 / -590 Intake: Oral 240 / 240 60 / 60 Output: Urine 600 / 600 650 / 650 Other: Stool Size Large Stool Consistency liquid Stool Characteristics Normal for Patient Stool Color Brown # Bowel Movements 1 Weight 98.43 kg Blood Glucose* 121 114 Patient Weight 12/07/16 23:59 Weight 98.43 kg - General physical appearance well developed, well nourished, no distress, no pain, obese - Eyes PERRL, normal ocular movement - ENT normal pinna, normal nares, normal mucosa, atraumatic, normocephalic, CN 2-12 grossly intact - Neck Neck exam: trachea midline, no venous distension - Respiratory normal expansion, normal respiratory effort, clear to auscultation - Cardiovascular Cardiovascular exam: Present: RRR, no murmurs/rubs/gallops. Absent: JVD - Abdomen Abdomen: Present: bowel sounds present, soft, non tender - Integumentary no rash, no abnormal pigmentation, other (Patient's lower extremities is covered with watery stool.) - Neurologic CN 2-12 grossly intact, normal coordination, normal sensation - Musculoskeletal normal posture - Psychiatric oriented to time, oriented to person, oriented to place, speech is normal, memory intact, other (Patient is irritable) - Labs 12/07/16 03:55 12/07/16 03:55 Diabetes panel 12/07/16 Range/Units 03:55 Sodium 139 (136-145) mEq/L Potassium 3.7 (3.5-4.5) mEq/L Chloride 109 (98-109) mEq/L Carbon Dioxide 23 (19-29) mEq/L BUN 16 (8-26) mg/dL Creatinine 0.92 (0.72-1.25) mg/dL Glucose 97 (70-99) mg/dL Calcium 8.4 L (8.6-10.8) mg/dL Calcium panel 12/07/16 Range/Units 03:55 Calcium 8.4 L (8.6-10.8) mg/dL Pituitary panel 12/07/16 Range/Units 03:55 Sodium 139 (136-145) mEq/L Potassium 3.7 (3.5-4.5) mEq/L Chloride 109 (98-109) mEq/L Carbon Dioxide 23 (19-29) mEq/L BUN 16 (8-26) mg/dL Creatinine 0.92 (0.72-1.25) mg/dL Glucose 97 (70-99) mg/dL Calcium 8.4 L (8.6-10.8) mg/dL Adrenal panel 12/07/16 Range/Units 03:55 Sodium 139 (136-145) mEq/L Potassium 3.7 (3.5-4.5) mEq/L Chloride 109 (98-109) mEq/L Carbon Dioxide 23 (19-29) mEq/L BUN 16 (8-26) mg/dL Creatinine 0.92 (0.72-1.25) mg/dL Glucose 97 (70-99) mg/dL Calcium 8.4 L (8.6-10.8) mg/dL Consult Discharge Plan - Plan Referrals: [facility] [Outside] - 12/20/16 8:15 am - Attending Attestation I examined this patient and my medical decision-making was reviewed with the DIRECTOR ENVIRONMENTAL/PA/Advanced Practice Nurse/Resident Physician. I agree with the documented findings, disposition and treatment plan as described except to the extent set forth below. The patient was seen and evaluated. He appears to have a resolving bowel obstruction. We will continue to advance diet at this point. He will be followed clinically. Vijay Haque MD FACS
[2016-12-07] MEDS: Insulin LISPRO 300 UNITS/3 ML VIAL SQ SCH ×4 (08:47→20:40)
[2016-12-07] MEDS: Pregabalin 75 MG CAPSULE PO SCH ×2 (08:59→14:38)
[2016-12-07] MEDS: Sennosides/Docusate Sodium TABLET PO SCH ×2 (08:59→21:04)
[2016-12-07] MEDS: Cyanocobalamin (B-12) 1,000 MCG TABLET PO SCH ×2 (08:59→21:04)
--- NOTE | 2016-12-07 16:42 | Internal Med Progress Note ---
Date of Encounter: 12/07/16 Time of Encounter: 10:00 - Assessment and plan (1) Small bowel obstruction Current Visit: Yes Status: Acute Assessment and plan: improved after treatment. NG tube has been removed. Had BM yesterday. Diet advanced to soft. Surgical consult is on case. continue closely monitor patient. (2) Diabetes mellitus Current Visit: Yes Status: Chronic Assessment and plan: A1C 6.9 FS acceptable, continue sliding scale Qualifiers: Diabetes mellitus type: type 2 Diabetes mellitus complication status: with unspecified complications Diabetes mellitus medical terminologist insulin use: without medical terminologist use Qualified Code(s): E11.8 - Type 2 diabetes mellitus with unspecified complications (3) Hypothyroidism Current Visit: Yes Status: Chronic Assessment and plan: Continue home medication Synthroid Qualifiers: Hypothyroidism type: unspecified Qualified Code(s): E03.9 - Hypothyroidism , unspecified (4) DVT prophylaxis Current Visit: Yes Status: Acute Assessment and plan: heparin subcutaneously (5) General weakness Current Visit: Yes Status: Acute Assessment and plan: PTOT evaluation recommended ECF discharge, patient refused to go to ECF. We will arrange home health and home PT and OT - Time Spent With Patient 25 - 35 minutes - Subjective Interval history: Patient is a 76-year-old male admitted for small bowel obstruction. His past medical history is significant for diabetes, hypertension, hypothyroidism. Patient was seen and examined. Had BM and flatus yesterday. C/o cramping abd pain when has flatus or BM. Vitals stable. Diet advanced to soft diet. Surgical on case. - Constitutional Vitals: Temp Pulse Resp BP Pulse Ox 97.5 F L 61 18 136/76 99 12/07/16 16:12 12/07/16 16:12 12/07/16 16:12 12/07/16 16:12 12/07/16 16:12 General appearance: Present: A&O X 3, pleasant, no acute distress, answers questions appropriately - Head Head exam: Present: atraumatic, normocephalic - Eye Eye exam: Present: PERRL, conjuntiva pink, sclera anicteric Pupils: Present: PERRL - Neck Neck exam general surgery: Present: supple, trachea midline. Absent: lymphadenopathy - Respiratory Respiratory exam: Present: CTAB. Absent: accessory muscle use, rales, rhonchi, wheezes - Cardiovascular Cardiovascular exam: Present: RRR, +S1, +S2. Absent: diastolic murmur, gallop, rubs, systolic murmur - GI/Abdominal GI/Abdominal exam: Present: normal bowel sounds, soft, no peritoneal signs. Absent: distended, tenderness - Extremities Exam Extremities exam: Present: warm, radial pulses palpable and symetrical. Absent : calf tenderness, cyanotic, pedal edema - Neurological Exam Neurological exam: Present: CN II-XII intact, oriented X3, no focal deficits. Absent: pronater drift, facial droop, speech deficit - Skin Skin exam: Present: dry, intact Internal Medicine: Result - Labs CBC & Chem 7: 12/07/16 03:55 12/07/16 03:55 Labs: Short CBC 12/07/16 Range/Units 03:55 WBC 7.6 (4.3-11.1) K/mcL Hgb 12.1 L (12.9-16.9) g/dL Hct 34.7 L (37.5-50.1) % Plt Count 256 (140-400) K/mcL Neutrophils # 5.0 (1.6-8.9) K/mcL BMP 12/07/16 03:55 Sodium 139 Potassium 3.7 Chloride 109 Carbon Dioxide 23 BUN 16 Creatinine 0.92 Glucose 97 Calcium 8.4 L - ABG Interpretation ABG results: PT/INR, D-dimer PT 12.7 Seconds (9.4-12.1) H 12/01/16 18:04 Consult Discharge Plan - Plan Referrals: [facility] [Outside] - 12/20/16 8:15 am
[2016-12-07] MEDS: Pregabalin 50 MG CAPSULE PO SCH (21:03)
[2016-12-07] MEDS: Melatonin 3 MG TABLET PO SCH (21:04)
[2016-12-07] MEDS: *HR* OxyCODONE Immed Rel 5 MG TABLET PO PRN (23:30)
[2016-12-07] MEDS: Ondansetron 4 MG/2 ML VIAL IVP PRN (23:33)
[2016-12-08 03:58] LABS: Basophils % 0.5 %; Eosinophils # 0.1 K/mcL (0.0-0.6); Eosinophils % 1.3 %; Hematocrit 36.7 % (37.5-50.1); Hemoglobin 13.2 g/dL (12.9-16.9); Lymphocytes # 1.4 K/mcL (0.6-4.6); Lymphocytes % 19.1 %; Mean Corpuscular Hemoglobin 30.6 pg (28.0-33.3); Mean Corpuscular Volume 85.2 fL (83.0-100.0); Mean Platelet Volume 10.7 fL (9.4-12.4); Monocytes # 0.9 K/mcL (0.0-1.3); Monocytes % 11.7 %; Neutrophils # 4.8 K/mcL (1.6-8.9); Platelet Count 256 K/mcL (140-400); Red Blood Count 4.31 M/mcL (4.19-5.50); Red Cell Distribution Width 13.8 % (11.5-14.5); Segmented Neutrophils % 63.4 %
[2016-12-08 04:11] LABS: BUN/Creatinine Ratio 16 (6-26); Blood Urea Nitrogen 15 mg/dL (8-26); Calcium 8.7 mg/dL (8.6-10.8); Carbon Dioxide 22 mEq/L (19-29); Chloride 108 mEq/L (98-109); Glucose 91 mg/dL (70-99); Osmolality,Calculated 286 (280-300); Potassium 3.5 mEq/L (3.5-4.5); Sodium 138 mEq/L (136-145); eGFR For African Americans > 60 (> 60); eGFR For Non-African Americans > 60 (> 60)
[2016-12-08] MEDS: *HR* Heparin 5,000 UNIT/ML VIAL SQ SCH (05:41)
[2016-12-08 07:06] VITALS: BP 113/71
[2016-12-08] MEDS: Insulin LISPRO 300 UNITS/3 ML VIAL SQ SCH ×2 (07:45→12:05)
--- NOTE | 2016-12-08 08:41 | General Surgery Progress Note ---
Addendum entered and electronically signed by Joann Dent DO 12/08/16 08:47: Surgery will sign out. Thank you for consult. Original Note: Date of Encounter: 12/08/16 Time of Encounter: 06:00 - Assessment and Plan (1) Small bowel obstruction Status: Acute High grade small bowel obstruction. PA CT scan 12/01/16 shows a hyperattenuating 3 cm intraluminal lesion in the mid to distal ileum, findings concerning for high-grade small bowel obstruction in the left abdomen. Patient is tolerating his soft diet well. Abdominal tenderness has resolved however, patient states that after he eats he gets a "grumbling in his belly ". Denies nausea or vomiting. Bowel movements and flatus: Continuing daily. Patient has been up to ambulate walking the hallways yesterday and today. Vital signs stable. Afebrile. Patient is making urine without difficulty. Abdominal exam: No tenderness to palpation. No masses. No rebound, guarding, peritoneal signs. Nonsurgical abdomen. Normal active bowel sounds. Patient is stable from a surgical standpoint. Discharge planning per hospital team. Plan: Small bowel obstruction -Serial abdominal exams -Monitoring of I/O's -Continue to advance diet as patient tolerates. -Continue pain control especially at night -Continue GI prophylaxis/PPI therapy -Continued daily monitoring for flatus and bowel movements. -Patient has continued to improve during the course of his stay for his small bowel obstruction. Patient has continued to have flatus and regular bowel movements over the past 3 days. He is tolerating his soft diet well. He has no complaints of nausea or vomiting. Patient has no abdominal pain or tenderness. Patient is up to ambulate. Patient is urinating without difficulty. He is clear from a surgical standpoint discharge planning per hospital team. Subjective Patient reports: feels better, pain is less, voiding w/o difficulty, flatus, bowel movement, afebrile Narrative: The patient was seen and examined. Patient reports that he has tolerated his soft diet well and has been up ambulating the hallways yesterday and is sitting up at the chair eating his breakfast today. Patient reports his abdominal tenderness has resolved he just has a little bit of rumbling after he eats but no pain. Patient reports that he lives alone. Patient reports that he is ready to go home. Objective Vital Signs - Last 8 Hours Temp Pulse Resp BP Pulse Ox 05/27/17 06:50 97.4 F L 68 16 113/71 96 12/08/16 03:37 97.4 F L 61 18 120/69 94 Intake and Output 12/07/16 12/08/16 12/08/16 23:59 07:59 15:59 Intake Total 240 / 240 0 / 0 Output Total 0 / 0 200 / 200 Balance 240 / 240 -200 / -200 Intake: Oral 240 / 240 0 / 0 Output: Urine 0 / 0 200 / 200 Other: Meal Dinner Percent of Meal Consumed 75% Stool Size Small Stool Consistency loose liquid Stool Color Brown # Voids 1 # Bowel Movements 1 Weight 98.43 kg Blood Glucose* 119 83 Patient Weight 12/08/16 23:59 Weight 98.43 kg - General physical appearance well developed, well nourished, no distress, obese - Eyes PERRL, normal ocular movement - ENT normal pinna, normal nares, normal mucosa, atraumatic, normocephalic, CN 2-12 grossly intact - Neck Neck exam: trachea midline, no venous distension - Respiratory normal expansion, normal respiratory effort, clear to auscultation - Cardiovascular Cardiovascular exam: Present: RRR, no murmurs/rubs/gallops. Absent: JVD - Abdomen Abdomen: Present: bowel sounds present, soft, non tender - Integumentary no rash, no abnormal pigmentation - Neurologic CN 2-12 grossly intact, normal coordination, normal sensation - Musculoskeletal normal gait, normal posture - Psychiatric oriented to time, oriented to person, oriented to place, speech is normal, memory intact - Labs 12/08/16 02:58 12/08/16 02:58 Diabetes panel 12/08/16 Range/Units 02:58 Sodium 138 (136-145) mEq/L Potassium 3.5 (3.5-4.5) mEq/L Chloride 108 (98-109) mEq/L Carbon Dioxide 22 (19-29) mEq/L BUN 15 (8-26) mg/dL Creatinine 0.93 (0.72-1.25) mg/dL Glucose 91 (70-99) mg/dL Calcium 8.7 (8.6-10.8) mg/dL Calcium panel 12/08/16 Range/Units 02:58 Calcium 8.7 (8.6-10.8) mg/dL Pituitary panel 12/08/16 Range/Units 02:58 Sodium 138 (136-145) mEq/L Potassium 3.5 (3.5-4.5) mEq/L Chloride 108 (98-109) mEq/L Carbon Dioxide 22 (19-29) mEq/L BUN 15 (8-26) mg/dL Creatinine 0.93 (0.72-1.25) mg/dL Glucose 91 (70-99) mg/dL Calcium 8.7 (8.6-10.8) mg/dL Adrenal panel 12/08/16 Range/Units 02:58 Sodium 138 (136-145) mEq/L Potassium 3.5 (3.5-4.5) mEq/L Chloride 108 (98-109) mEq/L Carbon Dioxide 22 (19-29) mEq/L BUN 15 (8-26) mg/dL Creatinine 0.93 (0.72-1.25) mg/dL Glucose 91 (70-99) mg/dL Calcium 8.7 (8.6-10.8) mg/dL Consult Discharge Plan - Plan Referrals: [facility] [Outside] - 12/20/16 8:15 am - Attending Attestation I examined this patient and my medical decision-making was reviewed with the SHELLFISH DREDGE OPERATOR/PA/Advanced Practice Nurse/Resident Physician. I agree with the documented findings, disposition and treatment plan as described except to the extent set forth below. The patient is seen and evaluated is tolerating regular diet and ready for discharge home Vijay Haque MD FACS
[2016-12-08] MEDS: Pregabalin 75 MG CAPSULE PO SCH (09:04)
[2016-12-08] MEDS: Cyanocobalamin (B-12) 1,000 MCG TABLET PO SCH (09:05)
[2016-12-08] MEDS: Sennosides/Docusate Sodium TABLET PO SCH (09:05)
--- NOTE | 2016-12-08 11:15 | Discharge Summary ---
Date of Encounter: 12/08/16 Time of Encounter: 10:00 - Discharge Diagnosis (1) Small bowel obstruction Priority: Primary Status: Acute (2) Diabetes mellitus Priority: Secondary Status: Chronic Qualifiers: Diabetes mellitus type: type 2 Diabetes mellitus complication status: with unspecified complications Diabetes mellitus prison insulin use: without prison use Qualified Code(s): E11.8 - Type 2 diabetes mellitus with unspecified complications (3) Hypothyroidism Priority: Secondary Status: Chronic Qualifiers: Hypothyroidism type: unspecified Qualified Code(s): E03.9 - Hypothyroidism , unspecified (4) DVT prophylaxis Priority: Secondary Status: Acute (5) General weakness Priority: Primary Status: Acute - Discharge Medications Home Medications: Cyanocobalamin (B-12) [Vitamin B12] 1,000 mcg PO BID 12/01/16 [History] LORazepam [Ativan] 0.5 mg PO HS PRN 12/01/16 [History] Levothyroxine [Levothyroxine Sodium] 137 mcg PO QAM 12/01/16 [History] Lidocaine Patch [Lidoderm 5% patch] 2 each TP DAILY 12/01/16 [History] Polyethylene Glycol 3350 [Smoothlax] 17 gm PO BID PRN 12/01/16 [History] Simvastatin [Zocor] 20 mg PO HS 12/01/16 [History] metFORMIN [Glucophage] 1,000 mg PO QAM 12/01/16 [History] Cyanocobalamin (B-12) [Vitamin B12] 1,000 mcg IM AD 12/02/16 [History] Diclofenac Sodium [Voltaren] 1 appl TP BID PRN 12/02/16 [History] Gentamicin OPTH Soln 2 drop BOTH EYES QID 12/02/16 [History] Melatonin [Melatin] 3 mg PO HS 12/02/16 [History] Pantoprazole Sodium [Protonix] 20 mg PO BID 12/02/16 [History] Pregabalin [Lyrica] 150 mg PO BID 12/02/16 [History] Pregabalin [Lyrica] 200 mg PO HS 12/02/16 [History] Saxagliptin HCl [Onglyza] 5 mg PO DAILY 12/02/16 [History] Sennosides/Docusate Sodium [Senna Plus] 1 each PO BID 12/02/16 [History] Tobramycin/Dexamethasone [Tobramycin-Dexameth Ophth Susp] 1 drop BOTH EYES QID 12/02/16 [History] metFORMIN [Glucophage] 1,500 mg PO HS 12/02/16 [History] Allergies/Adverse Reactions: Allergies gabapentin Allergy (Verified 12/01/16 16:59) Rash Date of admission: 12/01/16 23:40 Primary care physician: PCP [place] Consults: 12/04/16 10:33 Consult to Occupational Therapy [CONS] Routine Comment: Evaluate, develop and implement POC Reason for Consult: Hx of fall, may need home health Consult to Physical Therapy [CONS] Routine Comment: Evaluate, develop and implement POC Reason for Consult: Hx of fall, may need HH Discharging clinician: Rafaela Esquivel Anticipated date of discharge: 12/08/16 - Patient Status Disposition: Home Health Service Condition: Good Overall status at discharge: patient is back to baseline - Discharge Instructions Follow Up With: [facility] [Outside] - 12/20/16 8:15 am - Diet and Activity Activity: increase activity as tolerated Diet: advance to your usual diet (Gradually as tolerated), diabetic diet Interval History: Mr. 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 Patient was initially evaluated at the [place] emergency room and sent to our hospital for higher level of care. Patient reports at least a four-week history of nonspecific lower abdominal pain for which he was evaluated at different emergency rooms at least twice and underwent basic labs, CT abdomen, PET/CT with no specific diagnosis. His abdominal pain has been getting worse for the last 2-3 days, associated with abdominal distention and nausea. Pain is worse in left lower abdomen, moderate to severe dull aching pain, nonradiating, no aggravating or relieving factors. He reports no vomiting and his last bowel movement has been yesterday morning after which he took laxatives with no flatness or bowel movement. He reports subjective chills but no chest pain, cough, shortness of breath. He lives alone and reports recent unsteady gait, he also sustained a fall about 5 weeks ago and has recently been approved for home health services, not begun yet. Hospital course: Mr. Correa is a 76 year old male admitted for small bowel obstruction. Patient was placed on NG tube with low intermittent suction, nothing by mouth, IV fluid. Surgical consult called and saw patient. After treatment, his condition has improved. His diet advanced to soft diet. Patient has bowel movement and Passing gas. He will be discharged home with home health, and follow-up with PCP as outpatient. I saw and examined the patient today. He is awake alert, oriented 3. Vitals are stable. No nausea vomiting. Mild abdominal cramps after eating, can resolve but itself. Patient was educated to eat low fiber diet, eat less but more frequent. Surgical consult saw pt and sign off. Patient was discharged home with home health. He also mentioned his daughter will stay with him if he needs her. - Time Spent with Patient Total time spent providing and/or coordinating discharge services: 40 min Greater than 30 minutes - Constitutional Vitals: Temp Pulse Resp BP Pulse Ox 97.4 F L 68 16 113/71 96 12/08/16 06:50 12/08/16 06:50 12/08/16 06:50 12/08/16 06:50 12/08/16 06:50 General appearance: Present: A&O X 3, pleasant, no acute distress, answers questions appropriately - Head Head exam: Present: atraumatic, normocephalic - Eye Eye exam: Present: PERRL, conjuntiva pink, sclera anicteric Pupils: Present: PERRL - Neck Neck exam general surgery: Present: supple, trachea midline. Absent: lymphadenopathy - Respiratory Respiratory exam: Present: CTAB. Absent: accessory muscle use, rales, rhonchi, wheezes - Cardiovascular Cardiovascular exam: Present: RRR, +S1, +S2. Absent: diastolic murmur, gallop, rubs, systolic murmur - GI/Abdominal GI/Abdominal exam: Present: normal bowel sounds, soft, no peritoneal signs. Absent: distended, tenderness - Extremities Exam Extremities exam: Present: warm, radial pulses palpable and symetrical. Absent : calf tenderness, cyanotic, pedal edema - Neurological Exam Neurological exam: Present: CN II-XII intact, oriented X3, no focal deficits. Absent: pronater drift, facial droop, speech deficit - Skin Skin exam: Present: dry, intact - VTE Documentation of Mechanical Device: Intermittent pneumatic compression device
--- NOTE | 2016-12-08 11:26 | Physician Discharge Referral ---
Home Health/Hosp Referral Info Transfer to: Home Health Provider in Charge Post Discharge: PCP - Diagnosis (1) Small bowel obstruction Priority: Primary Status: Acute (2) Diabetes mellitus Priority: Secondary Status: Chronic (3) Hypothyroidism Priority: Secondary Status: Chronic (4) DVT prophylaxis Priority: Secondary Status: Acute (5) General weakness Priority: Primary Status: Acute - Respiratory Orders Smoking Cessation: Smoking cessation has been advised. For more information, call the [place] Tobacco Quit Line at 4-734-MCFF-NOW. - Diet/Nutrition Diet/Nutrition Orders: No Concentrated Sweets - Services Needed Following services are medically necessary services: Nursing, Home Health Aide, Physical Therapy, Occupational Therapy - Transfer Medications Home Medications: Cyanocobalamin (B-12) [Vitamin B12] 1,000 mcg PO BID 12/01/16 [History] LORazepam [Ativan] 0.5 mg PO HS PRN 12/01/16 [History] Levothyroxine [Levothyroxine Sodium] 137 mcg PO QAM 12/01/16 [History] Lidocaine Patch [Lidoderm 5% patch] 2 each TP DAILY 12/01/16 [History] Polyethylene Glycol 3350 [Smoothlax] 17 gm PO BID PRN 12/01/16 [History] Simvastatin [Zocor] 20 mg PO HS 12/01/16 [History] metFORMIN [Glucophage] 1,000 mg PO QAM 12/01/16 [History] Cyanocobalamin (B-12) [Vitamin B12] 1,000 mcg IM AD 12/02/16 [History] Diclofenac Sodium [Voltaren] 1 appl TP BID PRN 12/02/16 [History] Gentamicin OPTH Soln 2 drop BOTH EYES QID 12/02/16 [History] Melatonin [Melatin] 3 mg PO HS 12/02/16 [History] Pantoprazole Sodium [Protonix] 20 mg PO BID 12/02/16 [History] Pregabalin [Lyrica] 150 mg PO BID 12/02/16 [History] Pregabalin [Lyrica] 200 mg PO HS 12/02/16 [History] Saxagliptin HCl [Onglyza] 5 mg PO DAILY 12/02/16 [History] Sennosides/Docusate Sodium [Senna Plus] 1 each PO BID 12/02/16 [History] Tobramycin/Dexamethasone [Tobramycin-Dexameth Ophth Susp] 1 drop BOTH EYES QID 12/02/16 [History] metFORMIN [Glucophage] 1,500 mg PO HS 12/02/16 [History] Allergies/Adverse Reactions: Allergies gabapentin Allergy (Verified 12/01/16 16:59) Rash Certification: Further, I certify that my clinical findings support that this patient is homebound (i.e. absences from home require considerable and taxing effort and are for medical reasons or yazidi services or infrequently or short duration when for other reasons) because: Homebound Reason: Patient requires assistance of a person or device to safely leave home Attestation: My signature below is to certify that this patient is under my care and that I, or nurse practitioner, or a physician's market research assistant working with me, has a face-to -face encounter with this patient.
== END 2016-12-08 12:20 | disposition home health service (06) | DRG 389 ==
LOC: 3ANU 16:41 → EMEROO 16:41 → 3ANU 21:53 → SUATTDRO 23:40
PROVIDERS: ADMIT Internal Medicine; ATTEND Internal Medicine